=== PATIENT | female | born 1975 | race Caucasian/White ===

== ENCOUNTER 2018-01-22 16:50 | Emergency (ER) | payer OTHER ==
[~2018-01-22] VITALS: Ht 170.2 cm; Wt 88.5 kg
[~2018-01-22 16:50] MED LIST: NAPROXEN500 MG PO; NORCO 5-325 TA1 EACH PO
[2018-01-22] MEDS ORDERED: PERCOCET 5-3251 EACH PO (17:19)
[2018-01-22] MEDS ORDERED: CYCLOBENZAPRINE5 MG PO (17:19)
[2018-01-22] MEDS ORDERED: METHYLPREDNISOLO4 M1 PO (18:24)
[2018-01-22] MEDS ORDERED: PERCOCET 7.5-31 EACH PO (18:24)
[2018-01-22] MEDS ORDERED: BACLOFEN10 MG PO (18:24)
== END 2018-01-22 18:33 | disposition home or self-care (01) ==
LOC: ED 16:50
DX: M53.86 Other specified dorsopathies, lumbar region (principal); M54.30 Sciatica, unspecified side; Z87.891 Personal history of nicotine dependence; Z88.5 Allergy status to narcotic agent; Z88.1 Allergy status to other antibiotic agents
CPT/HCPCS: 73502; 81001; 96374; 96375; 99283; J1100; J1885

== ENCOUNTER 2018-03-11 10:55 | Emergency (ER) | payer OTHER ==
[~2018-03-11] VITALS: Ht 170.2 cm; Wt 88.5 kg
--- OUTSIDE RECORDS SUMMARY | ~2018-03-11 | XMS | Encounter Summary ---
Demographics + + + | Address | [address] | | | [place] [address] | + + + | Home Phone | | + + + | Preferred Language | Unknown | + + + | Marital Status | Single | + + + | Uatsdin Affiliation | 1013 | + + + | Race | Unknown | + + + | Ethnic Group | Unknown | + + + Author + + + | Author | [facility] | + + + | Organization | [facility] | + + + | Address [...] Team Providers + +------+ + | Care Top Distribution Executive Name | Role | Phone | + +------+ + | Honey Shaffer | PCP | | + +------+ + Reason for Visit + + + | Reason | Comments | + + + | Follow-up | | + + + Encounter Details +--------+ + + + + | Date | Type | Department | Care Team | Description | +--------+ + + + + | 12/14/ | Telephone | [facility] | Honey Shaffer, | Follow-up | | 2017 | | [facility] | CORPORATE COORDINATOR [address] | | | | | CARE [address] | [place] | | | | | [place] | [address] | | | | | [address] | | | +--------+ + + + + Social History + +-------+ +--------+ + [...] on file | | + + + as of this encounter Plan of Treatment +--------+---------+ + + + | Date | Type | Specialty | Care Team | Description | +--------+---------+ + + + | 03/20/ | Office | Family Medicine | Honey Shaffer, | | | 2017 | Visit | | CORPORATE COORDINATOR [address] | | | | | | [place] | | | | | | [address] | | | | | | | | +--------+---------+ + + + as of this encounter Visit Diagnoses Not on filein this encounter"
--- OUTSIDE RECORDS SUMMARY | ~2018-03-11 | XMS | Encounter Summary ---
Demographics + + + | Address | [address] | | | [place] [address] | + + + | Home Phone | | + + + | Preferred Language | Unknown | + + + | Marital Status | Single | + + + | Latter Day Affiliation | 1013 | + + + | Race | Unknown | + + + | Ethnic Group | Unknown | + + + Author + + + | Author | [facility] | + + + | Organization | [facility] | + + + | Address [...] Team Providers + +------+ + | Care Home Advisor Name | Role | Phone | + +------+ + | Honey Shaffer | PCP | | + +------+ + Encounter Details +--------+ + + + + | Date | Type | Department | Care Team | Description | +--------+ + + + + | 12/14/ | Ancillary | [facility] | See, Medical | Pain | | 2018 | Orders | [facility] | Record | | | | | [address] | | | | | | [place] [address] | | | | | | [phone] | | | +--------+ + + + [...] 2017 | Visit | | [facility] [address] | | | | | | [place] | | | | | | [address] | | | | | | | | +--------+---------+ + + + as of this encounter Results X-ray lumbar spine limited 2-3 views (12/07/2017 1:34 AM) + + + | Specimen | Performing Laboratory | + + + | | [facility] [address] [place] [address] | + + + + + | Narrative | + + | This is a non-reportable procedure without a radiologist report and is used for | | image storage only | + + in this encounter Visit Diagnoses + + | Diagnosis | + + | Pain | + + | Generalized pain | + +"
--- OUTSIDE RECORDS SUMMARY | ~2018-03-11 | XMS | Encounter Summary ---
Demographics + + + | Address | [address] | | | [place] [address] | + + + | Home Phone | | + + + | Preferred Language | Unknown | + + + | Marital Status | Single | + + + | Mosque Affiliation | 1013 | + + + | Race | Unknown | + + + | Ethnic Group | Unknown | + + + Author + + + | Author | [facility] | + + + | Organization | [facility] [facility] | + + + | Address [...] Team Providers + +------+ + | Care Mechanical Cad Drafter Name | Role | Phone | + +------+ + | Priyanka Guerrero MD | PCP | | + +------+ + Reason for Visit +--------+ + | Reason | Comments | +--------+ + | Other | DIAGNOSTICS | +--------+ + Encounter Details +--------+ + + + + | Date | Type | Department | Care Team | Description | +--------+ + + + + | 01/10/ | Documentnatalie | Rom[facility] | Beronica Crespo MA | Other (DIAGNOSTICS) | | 2018 | on Only | [facility] | | | | | | [address] | | | | | | [place] | | | | | | [address] | | | | | | [phone] | | | +--------+ + + + [...] [place] | | | | | | [address] | | | | | | | | +--------+---------+ + + + as of this encounter Visit Diagnoses Not on filein this encounter"
--- OUTSIDE RECORDS SUMMARY | ~2018-03-11 | XMS | Encounter Summary ---
Demographics + + + | Address | [address] | | | [place] [address] | + + + | Home Phone | | + + + | Preferred Language | Unknown | + + + | Marital Status | Single | + + + | Christianity Affiliation | 1013 | + + + | Race | Unknown | + + + | Ethnic Group | Unknown | + + + Author + + + | Author | [facility] | + + + | Organization | [facility] [employer] | + + + | Address [...] Team Providers + +------+ + | Care Immigration Attorney Name | Role | Phone | + +------+ + | Honey Shaffer | PCP | | + +------+ + Encounter Details +--------+ + + + + | Date | Type | Department | Care Team | Description | +--------+ + + + + | 12/12/ | Telephone | [facility] | Marcus, | | | 2017 | | LAURA INMAN | MONA Mcmillan | | | | | [address] | | | | | | [place] | | | | | | [address] | | | +--------+ + + + [...] [place] | | | | | | [address] | | | | | | | | +--------+---------+ + + + as of this encounter Visit Diagnoses Not on filein this encounter"
--- OUTSIDE RECORDS SUMMARY | ~2018-03-11 | XMS | Encounter Summary ---
Demographics + + + | Address | [address] | | | [place] [address] | + + + | Home Phone | | + + + | Preferred Language | Unknown | + + + | Marital Status | Single | + + + | Anabaptism Affiliation | 1013 | + + + | Race | Unknown | + + + | Ethnic Group | Unknown | + + + Author + + + | Author | [employer] | + + + | Organization | [employer] | + + + | Address [...] Team Providers + +------+ + | Care Commercial Real Estate Paralegal Name | Role | Phone | + [...] + + | 12/14/ | Telephone | [facility] | Honey Shaffer, | Follow-up | | 2017 | | [facility] | ASSISTANT COACH [address] | | | | | CARE [address] | [place] | | | | | [place] | [address] | | | | | [address] | | | +--------+ + + + [...] | | 2017 | Visit | | ASSISTANT COACH [address] | | | | | | [place] | | | | | | [address] | | | | | | | | +--------+---------+ + + + as of this encounter Visit Diagnoses Not on filein this encounter"
--- OUTSIDE RECORDS SUMMARY | ~2018-03-11 | XMS | Encounter Summary ---
Demographics + + + | Address | [address] | | | [place] [address] | + + + | Home Phone | | + + + | Preferred Language | Unknown | + + + | Marital Status | Single | + + + | Denominational Affiliation | 1013 | + + + | Race | Unknown | + + + | Ethnic Group | Unknown | + + + Author + + + | Author | [employer] | + + + | Organization | [employer] | + + + | Address [...] Team Providers + +------+ + | Care Hospital Education Coordinator Name | Role | Phone | + +------+ + | Honey Shaffer | PCP | | + +------+ + Reason for Visit +--------+ + | Reason | Comments | +--------+ + | Other | [facility] Visit | +--------+ + Encounter Details +--------+ + + + + | Date | Type | Department | Care Team | Description | +--------+ + + + + | 01/22/ | Documentati | [facility] | Marii Pickens, | Other ([facility] | | 2018 | on Only | [facility] | GUEST SERVICES DIRECTOR | Hospital - ER Visit) | | | | CARE [address] | | | | | | [place] | | | | | | [address] | | | +--------+ + + + [...] | 2017 | Visit | | [address] | | | | | | [place] | | | | | | [address] | | | | | | | | +--------+---------+ + + + as of this encounter Visit Diagnoses Not on filein this encounter"
--- OUTSIDE RECORDS SUMMARY | ~2018-03-11 | XMS | Encounter Summary ---
Demographics + + + | Address | [address] | | | [place] [address] | + + + | Home Phone [...] + + + | Author | [employer] | + + + | Organization | [employer] | + + + | Address [...] Team Providers + +------+ + | Care Machine Striper Name | Role | Phone | + +------+ + | Honey Shaffer | PCP | | + +------+ + Reason for Referral Consultation (Routine) + + + + + + + | Status | Reason | Specialty | Diagnoses / | Referred By | Referred To | | | | | Procedures | Contact | Contact | + + + + + + + | Authorized | Specialty | Pain Medicine | Diagnoses | Edmund | Karl | | | Services | - Pain | Lumbar | FEMI Méndez | Pain | | | Required | Medicine | discogenic | [address] | Management, | | | | | pain | [address] | [address] | | | | | syndrome | [place], | [address] | | | | | | [place] [address] | [place], | | | | | | Phone: | [place] [address] | | | | | | [phone] | Phone: | | | | | | Fax: | [phone] | | | | | | [phone] | Fax: | | | | | | | [phone] | + + + + + + + Encounter Details +--------+---------+ + + + | Date | Type | Department | Care Team | Description | +--------+---------+ + + + | 01/23/ | Office | [facility] | Honey Shaffer, | Staph aureus | | 2018 | Visit | [facility] | GENOMICS SCIENTIST [address] | infection (Primary | | | | CARE [address] | [place] | Dx); Lumbar | | | | [place] | [address] | discogenic pain | | | | [address] | | syndrome; Multiple | | | | | | joint pain; | | | | | | Hypercholesteremia | +--------+---------+ + + + Social History + +-------+ [...] + + + as of this encounter Last Filed Vital Signs + + + [...] AM PST | + + + + in this encounter Instructions Patient Instructions - Honey Shaffer ARNP - 01/23/2018 11:40 AM PSTFormatting of this not e may be different from the original. High Cholesterol: Assessing Your Risk Have you been told that your cholesterol is too high? If so, you could be heading for a hea rt attack, also known as acute myocardial infarction (AMI), or stroke. This is especially tr ue if you have other risk factors for heart disease. Get smart about cholesterol and your he art disease risk. This sheet can help you understand your heart disease risk and how your ch olesterol level affects it. Talk to your healthcare provider about how to get started contro lling your cholesterol. Why is high cholesterol a problem? Blood cholesterol is a fatty substance. The body uses it to make membranes in cells and for hormone production. It travels through the bloodstream and is used by the tissues for torres l function. When blood cholesterol is high, it forms plaque and causes inflammation. The nadeen que builds up in the bolanos of arteries (blood vessels that carry blood from the heart to the body). This narrows the opening for blood flow. Over time, the heart may not get enough oxy gen. This can lead to coronary artery disease, heart attack, or stroke. 3 steps to assessing your risk Step 1. Find your risk factors for heart disease and stroke How your cholesterol numbers affect your heart health depends on other risk factors for hea rt attack and stroke. Check off each risk factor below that applies to you: Are you a man 45 years old or older or a woman 55 years old or older? Does your family have a history of heart problems before the age of 55 in male relatives or age 65 in female relatives? This includes heart attack, coronary heart disease, or ather osclerosis. Do you have high blood pressure? Do you take medicine to treat high blood pressure? Do you smoke? Do you have diabetes? Do you exercise very little or not very often? Recommendations are for 30 minutes of exe rcise at least 5 days a week. If you are not doing cardiovascular exercise as often as these recommendations, it may not be enough and you may be at higher risk for elevated cholestero l and heart disease. Do you eat a diet that is high in saturated or trans fats, cholesterol, sugar, or alcoho l? You may be at increased risk for heart disease if you do not eat enough fruits, vegetable s, lean meats and eat sugars or drink alcohol sparingly. Have you been told you have high cholesterol? Do you take medicine to control your melany sterol? Step 2. Test your cholesterol Have your cholesterol tested every 5 years after the age of 20 and more often if you have r isk factors. Cholesterol testing most often needs no preparation. Sometimes you may be asked to fast (not eat) before your test. A blood sample is taken and sent to a lab. There, the a mount of cholesterol and triglyceridein your blood is measured. There are2 types of chol esterol in the sample. The first is HDL ( good cholesterol ). The second is LDL ( bad cholesterol ). Cholesterol test results are most often shown as the total of HDL and LDL c holesterol numbers. You may also be told the separate HDL and LDL cholesterol results. Fill in your numbers below. HDL cholesterol: LDL cholesterol: Total cholesterol: Triglyceride: Step 3. Discuss the results with your healthcare provider If your cholesterol levels are higher than normal, your healthcare provider will help you w ith steps to take to lower your levels. Steps may include lifestyle changes like diet, physi zandra activity, and quitting smoking, and medicine to lower bad cholesterol levels. If you have high cholesterol, you may need your cholesterol level tested more often to make sure your medicine and lifestyle changes are working to reduce your risks of having a heart attack or stroke. Date Last Reviewed: 04/26/201619997419-1676 [employer]. [address] [place], [place] [address] [address]. All righ ts reserved. This information is not intended as a substitute for professional medical care. Always follow your healthcare professional's instructions. in this encounter Progress Notes Honey Shaffer ARNP - 01/23/2018 11:40 AM PSTFormatting of this note may be different from the original. Subjective: Patient ID: Grace Masterson is a 42 y.o. female. . Preliminary Data (patient reported):Notes above HPI taken by MA. Pt presents today to discuss elevated cholesterol and a staph infection. Staph infection was dx at Urgent care and then treated with Bactrim she is currently still on. Was also seen at ED in [place] for back problems and was put on prednisone which she is q uestioning whether she should take or not. DEPRESSION SCREENING ([id number]//[id number]) 08/30/2017 PHQ-2 Over the past 2 weeks, have you often been bothered by feeling down, depressed or hop eless? N PHQ-2 Over the past 2 weeks, have you often had little interest or pleasure in doing things ? N PHQ-2 Screening Negative Recommendations from Health Maintenance / Immunizations Due: Health Maintenance Due Topic Vaccine: Dtap/Tdap/Td (1 - Tdap) Cervical Cancer Screening (Pap) Specialty Comments on SnapShot: No specialty comments available. Patient Care Team: FEMI Ji as PCP - General (NURSE PRACTITIONER - FAMILY) Yovani Hoskins DO as Consulting Physician (Pain Medicine - Pain Medicine) HPI Patient here for follow up on abscess with staph infection. She was treated with cephalexi n and septra. She has finished both. The abscess has healed and no longer painful she repo rts. States she did have blood work done at her OBGYN in [facility]. She states that her cholesterol was elevated and was told to start out using Red Yeast Rice 600mg alexy y. Patient was given Percocet 09/21/17 from Alex Shaffer and then also from Dr. Delacruz on gave her lortab #60. She would like a referral to rheumatology but hasn't done labs yet. States her mom has RA. States her joints are bothering her. Knees, feet, fingers, and back. States last night she went to ED in [facility] and was put on prednisone for back pain. States she recently did a pap too and we will request those records. Results for orders placed or performed during the hospital encounter of 12/14/17 Wound culture Collection Time: 12/14/17 11:45 AM Result Value Ref Range Specimen Description OTHER CULTURE 3+ CULTURE STAPHYLOCOCCUS AUREUS (A) Susceptibility Staphylococcus aureus - YANELI Penicillin G RESISTANT Resistant Clindamycin SUSCEPTIBLE Sensitive Erythromycin SUSCEPTIBLE Sensitive Gentamicin SUSCEPTIBLE Sensitive Levofloxacin RESISTANT Resistant Moxifloxacin INTERMEDIATE Intermediate Oxacillin SUSCEPTIBLE Sensitive Tetracycline SUSCEPTIBLE Sensitive Trimethoprim + Sulfamethoxazole SUSCEPTIBLE Sensitive Vancomycin SUSCEPTIBLE Sensitive The following portions of the patient's history were reviewed and updated as appropriate an d is available elsewhere in the record: allergies, current medications, past family history, past medical history, past social history, past surgical history and problem list. Review of Systems Constitutional: Negative for chills and fever. HENT: Negative for congestion, postnasal drip, rhinorrhea and sore throat. Respiratory: Negative for cough and wheezing. Cardiovascular: Negative for chest pain and leg swelling. Gastrointestinal: Negative for abdominal pain, nausea and vomiting. Genitourinary: Negative for frequency and urgency. Musculoskeletal: Positive for back pain. Negative for neck pain. Neurological: Negative for dizziness and headaches. Psychiatric/Behavioral: Negative for sleep disturbance. Objective: BP 132/90 (BP Location: Left upper arm, Patient Position: Sitting) | Pulse 71 | Temp 98.1 F (36.7 C) (Oral) | Resp 16 | Ht 1.702 m (5' 7") | Wt 90.3 kg (199 lb) | SpO2 97% | BMI 31.17 kg/m Physical Exam Constitutional: She appears well-developed and well-nourished. Neck: Normal range of motion. Neck supple. No thyromegaly present. Cardiovascular: Normal rate, regular rhythm and normal heart sounds. No murmur heard. Pulmonary/Chest: Effort normal and breath sounds normal. She has no wheezes. Musculoskeletal: She exhibits no edema. Lymphadenopathy: She has no cervical adenopathy. Psychiatric: She has a normal mood and affect. Her behavior is normal. Judgment and thought content normal. Nursing note and vitals reviewed. Assessment and Plan: Visit Diagnoses and Associated Orders: Staph aureus infection Lumbar discogenic pain syndrome - Ambulatory referral to Pain Clinic Multiple joint pain - Rheumatoid factor; Future - C-reactive protein; Future - Sedimentation rate, automated; Future - FABIÁN; Future - Cyclic Peptide IGG; Future Hypercholesteremia Other orders - Cancel: CBC W/Auto Diff (Reflex to Manual); Future - Cancel: Comprehensive metabolic panel; Future - Cancel: Lipid panel; Future Patient to get lab work done for her multiple joint pain. Will notify her of results and f jobyther instructions. Patient to start on the prednisone that the ED in [place] gave. I cannot give pain meds due to them just giving her some yesterday. Referral to pain management for further medication management. Also, I encouraged her to t ry epidural steroid injections. Will abstract her labs from her recent obgyn. She should work on lifestyle changes. Impro ving diet, exercise, and weight loss. Follow up PRN depending on labs. in this encounter Plan of Treatment +--------+---------+ + + + | Date | Type | Specialty | Care Team | Description | +--------+---------+ + + + | 03/20/ | Office | Family Medicine | Honey Shaffer, | | | 2017 | Visit | | [address] | | | | | | [place], [place] | | | | | | [address] | | | | | | | | +--------+---------+ + + + + +--------+ + + | Name | Priori | Associated Diagnoses | Order Schedule | | | ty | | | + +--------+ + + | Ambulatory referral to Pain | Routin | Lumbar discogenic | Ordered: 01/23/2018 | | Clinic | e | pain syndrome | | + +--------+ + + as of this encounter Results Cyclic Peptide IGG (02/13/2018 11:17 AM) [...] + + | Blood | [facility] [address] [facility] [facility] [place] [address] | + + + FABIÁN (02/13/2018 11:17 AM) + + + + | Component | Value | Ref Range | + + + + | FABIÁN | NegativeComment: Reference range: Negative | | + + + + + + + | Specimen | Performing Laboratory | + + + | Blood - Vein | LABORATORY [facility] [address] | | | [place], [place] [address] | + + + Sedimentation rate, automated (02/13/2018 11:17 AM) + +-------+ + | Component | Value | Ref Range | + +-------+ + | ESR | 10 | 0 - 20 mm/h | + +-------+ + + + + | Specimen | Performing Laboratory | + + + | Blood - Vein | [facility] [address] [place] [address] [address] [place], | | | [place] [address] | + + + C-reactive protein (02/13/2018 11:17 AM) + +-------+ + | Component | Value | Ref Range | + +-------+ + | CRP | 0.4 | <0.5 mg/dL | + +-------+ + + + + | Specimen | Performing Laboratory | + + + | Blood - Vein | [facility] [address] [place] [address] [place], | | | [place] [address] | + + + Rheumatoid factor (02/13/2018 11:17 AM) + +-------+ + | Component | Value | Ref Range | + +-------+ + | RA TITER | <10 | <14 [iU]/mL | + +-------+ + + + + | Specimen | Performing Laboratory | + + + | Blood - Vein | [facility] [address] [place], | | | [place] [address] | + + + in this encounter Visit Diagnoses + + | Diagnosis | + + | Staph aureus infection - Primary | + + | Methicillin susceptible Staphylococcus aureus in conditions classified elsewhere and | | of unspecified site | + + | Lumbar discogenic pain syndrome | + + | Displacement of lumbar intervertebral disc without myelopathy | + + | Multiple joint pain | + + | Pain in joint, multiple sites | + + | Hypercholesteremia | + + | Pure hypercholesterolemia | + +
--- OUTSIDE RECORDS SUMMARY | ~2018-03-11 | XMS | Encounter Summary ---
Demographics + + + | Address | [address] | | | [place] [address] | + + + | Home Phone | | + + + | Preferred Language | Unknown | + + + | Marital Status | Single | + + + | Episcopalian Affiliation | 1013 | + + + | Race | Unknown | + + + | Ethnic Group | Unknown | + + + Author + + + | Author | [employer] | + + + | Organization | [employer] | + + + | Address [...] Team Providers + +------+ + | Care Cellophane Bag Machine Operator Name | Role | Phone | + +------+ + | Honey Shaffer | PCP | | + +------+ + Reason for Visit +--------+ + | Reason | Comments | +--------+ + | Other | [facility] | +--------+ + Encounter Details +--------+ + + + + | Date | Type | Department | Care Team | Description | +--------+ + + + + | 01/22/ | Documentati | [facility] | Marii Pickens [place], | Other ([place] | | 2018 | on Only | [facility] | [facility] | Hospital - Xray | | | | CARE [address] | | Hip) | | | | [address] [place], [place] | | | | | | [address] | | | +--------+ + + + [...] [place] | | | | | | [address] | | | | | | | | +--------+---------+ + + + as of this encounter Visit Diagnoses Not on filein this encounter"
--- OUTSIDE RECORDS SUMMARY | ~2018-03-11 | XMS | Encounter Summary ---
Demographics + + + | Address | [address] | | | [place] [address] | + + + | Home Phone | | + + + | Preferred Language | Unknown | + + + | Marital Status | Single | + + + | Hoahaoism Affiliation | 1013 | + + + | Race | Unknown | + + + | Ethnic Group | Unknown | + + + Author + + + | Author | [employer] | + + + | Organization | [employer] | + + + | Address [...] Team Providers + +------+ + | Care Child Care Nurse Name | Role | Phone | + +------+ + | Honey Shaffer | PCP | | + +------+ + Reason for Referral MRI/CAT Scan (Routine) + +--------+ + + + + | Status | Reason | Specialty | Diagnoses / | Referred By | Referred To | | | | | Procedures | Contact | Contact | + +--------+ + + + + | Pending | | Radiology | Diagnoses | See, | | | Review | | | Pain | Medical | | | | | | Procedures | Record | | | | | | MRI lumbar | | | | | | | spine | | | | | | | without | | | | | | | contrast | | | + +--------+ + + + + Encounter Details +--------+ + + + + | Date | Type | Department | Care Team | Description | +--------+ + + + + | 12/14/ | Ancillary | [facility] | See, Medical | Pain | | 2018 | [facility] MRI | Record | | | | | [address] | | | | | | [place] [address] | | | | | | [phone] | | | +--------+ + + + [...] | 2017 | Visit | | FEMI [address] | | | | | | [place] | | | | | | [address] | | | | | | | | +--------+---------+ + + + as of this encounter Results MRI lumbar spine without contrast (12/07/2017 1:34 AM) + + + | Specimen | Performing Laboratory | + + + | | [facility] [address] [place] [address] | + + + + + | Narrative | + + | This is a non-reportable procedure without a radiologist report and is used for | | image storage only | + + in this encounter Visit Diagnoses + + | Diagnosis | + + | Pain | + + | Generalized pain | + +"
--- OUTSIDE RECORDS SUMMARY | ~2018-03-11 | XMS | Encounter Summary ---
Demographics + + + | Address | [address] | | | [place] [address] | + + + | Home Phone [...] + + + | Author | [employer] | + + + | Organization | [employer] | + + + | Address [...] Team Providers + +------+ + | Care Manufacturing Development Engineer Name | Role | Phone | + +------+ + | Honey Shaffer | PCP | | + +------+ + Encounter Details +--------+ + + + + | Date | Type | Department | Care Team | Description | +--------+ + + + + | 02/18/ | Telephone | [facility] | Marii Pickens, | | | 2017 | | [place] [facility] | HYPERION DEVELOPER | | | | | [address] | | | | | | [place] | | | | | | [address] | | | +--------+ + + + [...] [place] | | | | | | [address] | | | | | | | | +--------+---------+ + + + as of this encounter Visit Diagnoses Not on filein this encounter"
--- OUTSIDE RECORDS SUMMARY | ~2018-03-11 | XMS | Encounter Summary ---
Demographics + + + | Address | [address] | | | [place] [address] | + + + | Home Phone | | + + + | Preferred Language | Unknown | + + + | Marital Status | Single | + + + | Hindu Affiliation | 1013 | + + + | Race | Unknown | + + + | Ethnic Group | Unknown | + + + Author + + + | Author | [employer] | + + + | Organization | [employer] | + + + | Address [...] Team Providers + +------+ + | Care Retail Greeter Name | Role | Phone | + [...] | | | | | | [place] [address] | [place], | | | | | | Phone: | [place] [address] | | | | | | [phone] | Phone: | | | | | | Fax: | [phone] | | | | | | [phone] | Fax: | | | | | | | [phone] | + + + + + + + Encounter Details +--------+---------+ + + + | Date | Type | Department | Care Team | Description | +--------+---------+ + + + | 01/23/ | Office | [facility] | Honey Shaffer, | Staph aureus | | 2018 | Visit | [facility] | GHOST [employer] [address] | infection (Primary | | | | CARE [address] | [place] | Dx); Lumbar | | | | [place] | [address] | discogenic pain | | | | [address] | | syndrome; Multiple | | | [...] heart attack or stroke. Date Last Reviewed: 04/26/201619999519-7699 [facility]. [address] [place], [place] [address] [address]. All righ ts reserved. This information is [...] on. Was also seen at ED in [place] for back problems and was put on prednisone which she is q uestioning whether she should take or not. DEPRESSION SCREENING ([id number]//[id number]) 08/30/2017 PHQ-2 Over the past 2 weeks, [...] blood work done at her OBGYN in [facility]. She states that her cholesterol was elevated [...] last night she went to ED in [facility] and was put on prednisone for back [...] on the prednisone that the ED in [place] gave. I cannot give pain meds due [...] | | | | | | [place], [place] | | | | | | [address] | | | | | | | [...] + + | Blood | [facility] [address] [place] [place] [address] | + + + FABIÁN (02/13/2018 11:17 AM) + + + + | Component | Value | Ref Range | + + + + | FABIÁN | NegativeComment: Reference range: Negative | | + + + + + + + | Specimen | Performing Laboratory | + + + | Blood - Vein | LABORATORY [facility] [address] | | | [place], [place] [address] | + + + Sedimentation rate, automated (02/13/2018 11:17 AM) + +-------+ + | Component | Value | Ref Range | + +-------+ + | ESR | 10 | 0 - 20 mm/h | + +-------+ + + + + | Specimen | Performing Laboratory | + + + | Blood - Vein | [facility] [address] [place] [address] [address] [place], | | | [place] [address] | + + + C-reactive protein (02/13/2018 11:17 AM) + +-------+ + | Component | Value | Ref Range | + +-------+ + | CRP | 0.4 | <0.5 mg/dL | + +-------+ + + + + | Specimen | Performing Laboratory | + + + | Blood - Vein | [facility] [address] [place] [address] [place], | | | [place] [address] | + + + Rheumatoid factor (02/13/2018 11:17 AM) + +-------+ + | Component | Value | Ref Range | + +-------+ + | RA TITER | <10 | <14 [iU]/mL | + +-------+ + + + + | Specimen | Performing Laboratory | + + + | Blood - Vein | [facility] [address] [place], | | | [place] [address] | + + + in this encounter [...]
--- OUTSIDE RECORDS SUMMARY | ~2018-03-11 | XMS | Encounter Summary ---
Demographics + + + | Address | [address] | | | [place] [address] | + + + | Home Phone | | + + + | Preferred Language | Unknown | + + + | Marital Status | Single | + + + | Methodist Affiliation | 1013 | + + + | Race | Unknown | + + + | Ethnic Group | Unknown | + + + Author + + + | Author | [facility] [facility] | + + + | Organization | [facility] [employer] [facility] | + + + | Address [...] Team Providers + +------+ + | Care Notching Press Operator Name | Role | Phone | + +------+ + | Honey Shaffer | PCP | | + +------+ + Reason for Visit + + + | Reason | Comments | + + + | Skin Complaint | Patient went to urgent care Sunday with a lump on her RUQ. She | | | was told it was Staph and it was I&D, She states the pain | | | was wose,and she returned to Urgent care where she was I&D again | | | per patient. Patient states the pain continues. | + + + Encounter Details +--------+ + + + + | Date | Type | Department | Care Team | Description | +--------+ + + + + | 12/14/ | Emergency | [facility] | Ej Amanda, | Abscess (Primary | | 2018 | | [facility] | PA-C [address] | Dx); Elevated blood | | | | Emergency Department | [place] [address] | pressure reading; | | | | [address] | [phone] | Chronic pain | | | | [place] [address] | | syndrome | | | | [phone] | Sandeep Savage MD | | | | | | [address] | | | | | | [place] [address] | | | | | | [phone] | | | | | | | | +--------+ + + [...] + + + | Blood Pressure | 136/71 | 12/14/2017 12:27 PM PST | + + + + | Pulse | 78 | 12/14/2017 12:27 PM PST | + + + + | Temperature | 35.9 C (96.6 F) | 12/14/2017 10:15 AM PST | + + + + | Respiratory Rate | 16 | 12/14/2017 12:27 PM PST | + + + + | Oxygen Saturation | 98% | 12/14/2017 12:27 PM PST | + + + + | Inhaled Oxygen | - | - | | Concentration | | | + + + + | Weight | 89.1 kg (196 lb 6.9 | 12/14/2017 10:15 AM PST | | | oz) | | + + + + | Height | - | - | + + + + | Body Mass Index | 30.77 | 12/14/2017 10:15 AM PST | + + + + in this encounter Discharge Instructions Ej Amanda PA-C - 12/14/2017Take Bactrim AND Keflex. The following attachments cannot be sent through Care Everywhere.Skin Infection, Cellulitis (Trinidadian)in this encounter Medications at Time of Discharge + + +---------+---------+ + + | Medication | Sig. | Disp. | Refills | Start | End Date | | | | | | Date | | + + +---------+---------+ + + | B Complex Vitamins | Take by mouth. | | | | | | (VITAMIN-B COMPLEX | | | | | | | PO) | | | | | | + + +---------+---------+ + + | ibuprofen (MOTRIN) | Take 800 mg by mouth | | 0 | 12/12/19 | | | 800 MG tablet | 3 (three) times | | | 18 | | | | daily. for 10 days. | | | | | + + +---------+---------+ + + | Multiple Vitamin | Take 1 tablet by | | | | | | (MULTI VITAMIN DAILY | mouth. | | | | | | PO) | | | | | | + + +---------+---------+ + + | | Take 1 tablet by | | | | | | oxyCODONE-acetaminop | mouth every 4 (four) | | | | | | hen (PERCOCET) 5-325 | hours as needed for | | | | | | MG per tablet | Pain. | | | | | + + +---------+---------+ + + | cephALEXin | Take 1 capsule by | 28 | 0 | 12/14/19 | | | (KEFLEX) 500 MG | mouth 4 (four) times | capsule | | 18 | 8 | | capsule | daily. | | | | | + + +---------+---------+ + + | cyclobenzaprine | Take 1 tablet by | 90 | 0 | 09/21/20 | | | (FLEXERIL) 5 MG | mouth 3 (three) | tablet | | 17 | 8 | | tabletIndications: | times daily as | | | | | | Spondylolisthesis of | needed for Muscle | | | | | | lumbar region, | spasms for up to 30 | | | | | | Chronic low back | days. | | | | | | pain without | | | | | | | sciatica, | | | | | | | unspecified back | | | | | | | pain laterality, DDD | | | | | | | (degenerative disc | | | | | | | disease), lumbar, | | | | | | | Lumbar facet | | | | | | | arthropathy (HCC), | | | | | | | Status post lumbar | | | | | | | laminectomy | | | | | | + + +---------+---------+ + + | | Take 1 tablet by | | | | | | sulfamethoxazole-tri | mouth 2 (two) times | | | | 8 | | methoprim (BACTRIM | daily. | | | | | | DS) 800-160 MG per | | | | | | | tablet | | | | | | + + +---------+---------+ + + as of this encounter Plan of Treatment +--------+---------+ + + + | Date | Type | Specialty | Care Team | Description | +--------+---------+ + + + | 03/20/ | Office | Family Medicine | Honey Shaffer, | | | 2017 | Visit | | [facility]CR[facility] [address] | | | | | | [place] | | | | | | [address] | | | | | | | | +--------+---------+ + + + as of this encounter Results Wound culture (12/14/2017 11:45 AM) + + [...] + + | Wound - OTHR-w | [facility] [address] [place], | | source desc (F6) | [place] [address] | + + + + + +--------+ [...] | Sensitive | + + +--------+ + in this encounter Visit Diagnoses + + | Diagnosis | + + | Abscess - Primary | + + | Cellulitis and abscess of unspecified site | + + | Elevated blood pressure reading | + + | Elevated blood pressure reading without diagnosis of hypertension | + + | Chronic pain syndrome | + + Admitting Diagnoses + + | Diagnosis | + + | Abscess | + + | Cellulitis and abscess of unspecified site | + + | Chronic pain syndrome | + + | Elevated blood pressure reading | + + | Elevated blood pressure reading without diagnosis of hypertension | + + Administered Medications + +--------+ +--------+------+------+ | Medication Order | MAR | Action | Dose | Rate | Site | | | Action | Date | | | | + +--------+ +--------+------+------+ | doxycycline (VIBRA-TABS) tablet | Given | | 100 mg | | | | 100 mg 100 mg, Oral, Once, Fri | | 8 11:54 | | | | | 12/14/17 at 1151, For 1 dose, | | PST | | | | | Indications: skin abscess | | | | | | + +--------+ +--------+------+------+ +---+---+ | | | +---+---+ + +-------+ +-------+---+---+ | ketorolac (TORADOL) tablet 10 | Given | | 10 mg | | | | mg 10 mg, Oral, Once, Sun | | 8 11:54 | | | | | 12/14/17 at 1151, For 1 dose | | PST | | | | + +-------+ +-------+---+---+ +---+---+ | | | +---+---+ in this encounter"
--- OUTSIDE RECORDS SUMMARY | ~2018-03-11 | XMS | Encounter Summary ---
Demographics + + + | Address | [address] | | | [place] [address] | + + + | Home Phone | | + + + | Preferred Language | Unknown | + + + | Marital Status | Single | + + + | Anabaptist Affiliation | 1013 | + + + | Race | Unknown | + + + | Ethnic Group | Unknown | + + + Author + + + | Author | [facility] [employer] [facility] | + + + | Organization | [facility] [employer] [facility] | + + + | Address [...] Team Providers + +------+ + | Care Ramp Service Agent Name | Role | Phone | + +------+ + | Honey Shaffer | PCP | | + +------+ + Encounter Details +--------+ + + + + | Date | Type | Department | Care Team | Description | +--------+ + + + + | 12/14/ | Procedure | [facility] | | | | 2017 | Pass | [facility] | | | | | | RADIOLOGY [address] | | | | | | [address] | | | | | | [place] [address] | | | | | | [phone] | | | +--------+ + + + [...] [place] | | | | | | [address] | | | | | | | | +--------+---------+ + + + as of this encounter Visit Diagnoses Not on filein this encounter"
--- OUTSIDE RECORDS SUMMARY | ~2018-03-11 | XMS | Encounter Summary ---
Demographics + + + | Address | [address] | | | [place] [address] | + + + | Home Phone | | + + + | Preferred Language | Unknown | + + + | Marital Status | Single | + + + | Yazdanism Affiliation | 1013 | + + + | Race | Unknown | + + + | Ethnic Group | Unknown | + + + Author + + + | Author | [facility] | + + + | Organization | [facility] [employer] [facility] | + + + | Address [...] Team Providers + +------+ + | Care Reverse Unit Operator Name | Role | Phone | + +------+ + | Honey Shaffer | PCP | | + +------+ + Encounter Details +--------+ + + + + | Date | Type | Department | Care Team | Description | +--------+ + + + + | 12/14/ | Procedure | [facility] | | | | 2017 | Pass | [facility] | | | | | | RADIOLOGY [address] | | | | | | [address] | | | | | | [place] [address] | | | | | | [phone] | | | +--------+ + + + [...] [place] | | | | | | [address] | | | | | | | | +--------+---------+ + + + as of this encounter Visit Diagnoses Not on filein this encounter"
--- OUTSIDE RECORDS SUMMARY | ~2018-03-11 | XMS | Encounter Summary ---
Demographics + + + | Address | [address] | | | [place] [address] | + + + | Home Phone | | + + + | Preferred Language | Unknown | + + + | Marital Status | Single | + + + | Christian Affiliation | 1013 | + + + | Race | Unknown | + + + | Ethnic Group | Unknown | + + + Author + + + | Author | [facility] | + + + | Organization | [facility] | + + + | Address [...] Team Providers + +------+ + | Care Chief Credit Officer Name | Role | Phone | + +------+ + | Honey Shaffer | PCP | | + +------+ + Reason for Visit MRI/CAT Scan (Routine) + +--------+ + + [...] + + | 12/14/ | Hospital | [facility]YS[facility]IAN | See, Medical | Pain | | 2018 | Encounter | [facility] | Record | | | | | RADIOLOGY [address] | | [address] | | | | | | [place] [address] | | | | | | [phone] | | | +--------+ + + + [...] + + + as of this encounter Medications at Time of Discharge [...] [place] | | | | | | [address] | | | | | | | | +--------+---------+ + + + as of this encounter Results MRI lumbar spine without contrast (12/07/2017 1:34 AM) + + + | Specimen | Performing Laboratory | + + + | | [facility] [address] [place] [address] | + + + + + | Narrative | + + | This is a non-reportable procedure without a radiologist report and is used for | | image storage only | + + in this encounter Visit Diagnoses + + | Diagnosis | + + | Pain | + + | Generalized pain | + +"
--- OUTSIDE RECORDS SUMMARY | ~2018-03-11 | XMS | Encounter Summary ---
Demographics + + + | Address | [address] | | | [place] [address] | + + + | Home Phone | | + + + | Preferred Language | Unknown | + + + | Marital Status | Single | + + + | Adventist Affiliation | 1013 | + + + | Race | Unknown | + + + | Ethnic Group | Unknown | + + + Author + + + | Author | [employer] [facility] | + + + | Organization | [employer] | + + + | Address [...] Team Providers + +------+ + | Care Repairing Calibrator Name | Role | Phone | + +------+ + | Honey Shaffer | PCP | | + +------+ + Reason for Visit +--------+ + | Reason | Comments | +--------+ + | Other | [facility] - Xray Hip | +--------+ + Encounter Details +--------+ + + + + | Date | Type | Department | Care Team | Description | +--------+ + + + + | 01/22/ | Documentati | [facility] | Marii Pickens [place], | Other ([place] | | 2018 | on Only | [facility] | [facility] | Hospital - Xray | | | | CARE [address] | | Hip) | | | | [address] [place], [place] | | | | | | [address] | | | +--------+ + + + [...] [place] | | | | | | [address] | | | | | | | | +--------+---------+ + + + as of this encounter Visit Diagnoses Not on filein this encounter"
--- OUTSIDE RECORDS SUMMARY | ~2018-03-11 | XMS | Encounter Summary ---
Demographics + + + | Address | [address] | | | [place] [address] | + + + | Home Phone | | + + + | Preferred Language | Unknown | + + + | Marital Status | Single | + + + | Shinto Affiliation | 1013 | + + + | Race | Unknown | + + + | Ethnic Group | Unknown | + + + Author + + + | Author | [facility] [facility] [facility] | + + + | Organization | [employer] [facility] | + + + | Address [...] Team Providers + +------+ + | Care Event Representative Name | Role | Phone | + [...] + + | 12/14/ | Emergency | [facility] | Ej Amanda, | Abscess (Primary | | 2018 | | [facility] | PA-C [address] | Dx); Elevated blood | | | | Emergency Department | [place] [address] | pressure reading; | | | | [address] | [phone] | Chronic pain | | | | [place] [address] | | syndrome | | | | [phone] | Sandeep Savage MD | | | | | | [address] | | | | | | [place] [address] | | | | | | [phone] | | | | | | | [...] be sent through Care Everywhere.Skin Infection, Cellulitis (Belgian)in this encounter Medications at Time of Discharge [...] | | 2017 | Visit | | INSERT[facility] PRESS OPER[facility] [address] | | | | | | [place] | | | | | | [address] | | | | | | | [...] + + | Wound - OTHR-w | [facility] [address] [place], | | source desc (F6) | [place] [address] | + + + + + +--------+ [...]
--- OUTSIDE RECORDS SUMMARY | ~2018-03-11 | XMS | Encounter Summary ---
Demographics + + + | Address | [address] | | | [place] [address] | + + + | Home Phone | | + + + | Preferred Language | Unknown | + + + | Marital Status | Single | + + + | Episcopal Affiliation | 1013 | + + + | Race | Unknown | + + + | Ethnic Group | Unknown | + + + Author + + + | Author | [employer] [employer] [facility] | + + + | Organization | [facility] [facility] | + + + | Address [...] Team Providers + +------+ + | Care Personal Care Attendant Name | Role | Phone | + +------+ + | Honey Shaffer | PCP | | + +------+ + Reason for Referral Consultation (Routine) +--------+ + + + + + | Status | Reason | Specialty | Diagnoses / | Referred By | Referred To | | | | | Procedures | Contact | Contact | +--------+ + + + + + | Denied | Specialty | Neurosurgery | Diagnoses | Edmund | Jayme | | | Magda | | | FEMI Méndez | MD Haseeb | | | Required | | Degeneration | [address] | | | | | of lumbar | [address] | Drive | | | | | intervertebr | [place], | [place] | | | | | al disc | [place] [address] | [address] Phone: | | | | | | Phone: | [phone] | | | | | | [phone] | Fax: | | | | | | Fax: | [phone] | | | | | | [phone] | | +--------+ + + + + + Encounter Details +--------+ + + + + | Date | Type | Department | Care Team | Description | +--------+ + + + + | 12/19/ | Telephone | [facility] | Marii Pickens, | | | 2017 | | [facility] | [facility] | | | | | CARE [address] | | | | | | [place] | | | | | | [phone] | | | +--------+ + + + [...] | | | | | | [place] | | | | | | [address] | | | | | | | | +--------+---------+ + + + + +--------+ + + | Name | Priori | Associated Diagnoses | Order Schedule | | | ty | | | + +--------+ + + | Ambulatory referral to Neurology | Routin | Degeneration of | Ordered: 12/19/2017 | | | e | lumbar | | | | | intervertebral disc | | + +--------+ + + as of this encounter Visit Diagnoses + + | Diagnosis | + + | Degeneration of lumbar intervertebral disc - Primary | + + | Degeneration of lumbar or lumbosacral intervertebral disc | + +"
--- OUTSIDE RECORDS SUMMARY | ~2018-03-11 | XMS | Encounter Summary ---
Demographics + + + | Address | [address] | | | [place] [address] | + + + | Home Phone | | + + + | Preferred Language | Unknown | + + + | Marital Status | Single | + + + | Gnosticism Affiliation | 1013 | + + + | Race | Unknown | + + + | Ethnic Group | Unknown | + + + Author + + + | Author | [facility] | + + + | Organization | [facility] | + + + | Address [...] Team Providers + +------+ + | Care Political Science Research Assistant Name | Role | Phone | + +------+ + | Honey Shaffer | PCP | | + +------+ + Reason for Visit +--------+ + | Reason | Comments | +--------+ + | Triage | | +--------+ + Encounter Details +--------+ + + + + | Date | Type | Department | Care Team | Description | +--------+ + + + + | 02/28/ | Telephone | [facility] | Marcus, | Triage | | 2017 | | [place] [facility] | MONA Mcmillan | | | | | SARIKA [address] | | | | | | [place] | | | | | | [address] | | | +--------+ + + + [...] [place] | | | | | | [place] | | | | | | [address] | | | | | | | | +--------+---------+ + + + as of this encounter Visit Diagnoses Not on filein this encounter"
--- OUTSIDE RECORDS SUMMARY | ~2018-03-11 | XMS | Encounter Summary ---
Demographics + + + | Address | [address] | | | [place] [address] | + + + | Home Phone [...] + + + | Author | [facility] [facility] | + + + | Organization | [facility] [facility] | + + + | Address [...] Team Providers + +------+ + | Care Inshore Undersea Warfare Officer Name | Role | Phone | + +------+ + | Honey Shaffer | PCP | | + +------+ + Encounter Details +--------+ + + + + | Date | Type | Department | Care Team | Description | +--------+ + + + + | 03/01/ | Telephone | [facility] | Halley Ibarra, | | | 2018 | | [facility] | TARE WEIGHER | | | | | [address] | | | | | | [place] | | | | | | [address] | | | | | | [phone] | | | +--------+ + + + [...] [place] | | | | | | [address] | | | | | | | | +--------+---------+ + + + as of this encounter Visit Diagnoses Not on filein this encounter"
--- OUTSIDE RECORDS SUMMARY | ~2018-03-11 | XMS | Clinical Summary ---
Demographics + + + | Address | [address] | | | [place] [address] | + + + | Home Phone | | + + + | Preferred Language | Unknown | + + + | Marital Status | Single | + + + | Caodaism Affiliation | Unknown | + + + | Race | Unknown | + + + | Ethnic Group | Unknown | + + + Author + + + | Author | [facility] | | | and [place] | + + + | Organization | [facility] | | | and [place] | + + + | Address | Unknown | + + + | Phone | Unavailable | + + + Support + + +---------+ + | Name | Relationship | Address | Phone | + + +---------+ + | LorenRolanda | ECON | Unknown | | + + +---------+ + Care Team Providers + +------+ + | Care General Adjuster Name | Role | Phone | + +------+ + | No, Physician | PP | Unavailable | + +------+ + Allergies + + + + + + | Active Allergy | Reactions | Severity | Noted | Comments | | | | | Date | | + + + + + + | Erythromycin | Rash | Low | 08/21/20 | | | | | | 15 | | + + + + + + Current Medications + + +---------+---------+------+------+-------+ | Prescription | Sig. | Disp. | Refills | Star | End | Statu | | | | | | t | Date | s | | | | | | Date | | | + + +---------+---------+------+------+-------+ | omeprazole | TAKE ONE CAPSULE BY | 15 | 0 | 10/0 | | Activ | | (PRILOSEC) 40 MG | MOUTH EVERY MORNING | capsule | | 1/20 | | e | | capsule | BEFORE BREAKFAST | | | 15 | | | + + +---------+---------+------+------+-------+ | ibuprofen (ADVIL, | Take 200 mg by mouth | | | | | Activ | | MOTRIN) 200 mg | every 6 hours as | | | | | e | | tablet | needed for Pain. | | | | | | + + +---------+---------+------+------+-------+ | acetaminophen | Take 15 mg/kg by | | | | | Activ | | (TYLENOL) 160 mg/5 | mouth every 4 hours | | | | | e | | mL LIQD liquid (ED | as needed for Fever. | | | | | | | prepack) | | | | | | | + + +---------+---------+------+------+-------+ | | Take 1 tablet by | | | | | Activ | | HYDROcodone-acetamin | mouth every 6 hours | | | | | e | | ophen (NORCO) 10-325 | as needed for Pain. | | | | | | | mg per tablet | | | | | | | + + +---------+---------+------+------+-------+ Active Problems No known active problems Social History + +-------+ +--------+------+ | Tobacco Use | Types | Packs/Day | Years | Date | | | | | Used | | + +-------+ +--------+------+ | Light Tobacco Smoker | | | | | + +-------+ +--------+------+ + +---+---+---+ | Smokeless Tobacco: | | | | | Never Used | | | | + +---+---+---+ + + + | Sex Assigned at | Date Recorded | | | | + + + | Not on file | | + + + Last Filed Vital Signs + + + + | Vital Sign | Reading | Time Taken | + + + + | Blood Pressure | 133/89 | 09/15/2016948 PDT | + + + + | Pulse | 75 | 09/15/2016948 PDT | + + + + | Temperature | 36.2 C (97.1 F) | 09/15/2016948 PDT | + + + + | Respiratory Rate | 16 | 09/15/2016948 PDT | + + + + | Oxygen Saturation | 100% | 08/21/20151333 PDT | + + + + | Inhaled Oxygen | - | - | | Concentration | | | + + + + | Weight | 80.7 kg (178 lb) | 09/15/2016948 PDT | + + + + | Height | 170.2 cm (5' 7") | 09/15/2016948 PDT | + + + + | Body Mass Index | 27.88 | 09/15/201649 PDT | + + + + Plan of Treatment + + + + + | Health Maintenance | Due Date | Last Done | Comments | + + + + + | Vaccine: | | | | | Dtap/Tdap/Td (1 - | 3 | | | | Tdap) | | | | + + + + + | Vaccine: | | | | | Pneumococcal - | 3 | | | | (PPSV23 only) Medium | | | | | Risk (1 of 1 - | | | | | PPSV23) | | | | + + + + + | CERVICAL CANCER | | | | | SCREENING (PAP EVERY | 5 | | | | 3 YEARS - ) | | | | + + + + + | Vaccine: Influenza | | | | | (Season Ended) | 8 | | | + + + + + Results Not on filefrom Last 3 Months Insurance + +--------+ +--------+ +---------+ | Payer | Benefi | Subscriber | Type | Phone | Address | | | t Plan | ID | | | | | | / | | | | | | | Group | | | | | + +--------+ +--------+ +---------+ | [employer] | [employer] | xxxxxxxx | Medica | [id number] | | | MEDICAID HMO | HEALTH | | id | 9821 | | | | [place] | | | | | | | [place] | | | | | + +--------+ +--------+ +---------+ + +--------+ +--------+ + + | Guarantor Name | Accoun | Relation to | Date | Phone | Billing Address | | | t Type | Patient | of | | | | | | | | | | + +--------+ +--------+ + + | TE MASTERSON | Person | Self [birth year] | Home: | [address] | | [place] | al/Fam | | 1974 | +- | [address] [place] | | | [place] | | | [address] | [phone] | + +--------+ +--------+ + + | [id number] | Worker | Self | [birth year] | Home: | [address] | | | s Comp | | 1974 | +- | [place] | | | | | | [address] | [address] | + +--------+ +--------+ + + | TE MASTERSON | Worker | Self | [birth year] | Home: | [address] | | [place] | s Comp | | 1974 | [phone] | [address] [place] | | | | | | [address] | [phone] | + +--------+ +--------+ + +
--- OUTSIDE RECORDS SUMMARY | ~2018-03-11 | XMS | Encounter Summary ---
Demographics + + + | Address | [address] | | | [place] [address] | + + + | Home Phone | | + + + | Preferred Language | Unknown | + + + | Marital Status | Single | + + + | Jainism Affiliation | 1013 | + + + | Race | Unknown | + + + | Ethnic Group | Unknown | + + + Author + + + | Author | [facility] [employer] [facility] | + + + | Organization | [facility] [employer] [facility] [facility] | + + + | Address [...] Team Providers + +------+ + | Care New Media Strategist Name | Role | Phone | + +------+ + | Hoeny Shaffer | PCP | | + +------+ + Encounter Details +--------+ + + + + | Date | Type | Department | Care Team | Description | +--------+ + + + + | 12/14/ | Hospital | [facility] | See, Medical | Pain | | 2017 | Encounter | [facility] | Record | | | | | RADIOLOGY [address] | | | | | | [address] | | | | | | [place] [address] | | | | | | [phone] | | | +--------+ + + + [...] | | 2017 | Visit | | [facility] [address] | | | | | | [place] [facility] [place] | | | | | | [address] | | | | | | | | +--------+---------+ + + + as of this encounter Results X-ray lumbar spine limited 2-3 views (12/07/2017 1:34 AM) + + + | Specimen | Performing Laboratory | + + + | | [facility] [address] [place] [address] | + + + + + | Narrative | + + | This is a non-reportable procedure without a radiologist report and is used for | | image storage only | + + in this encounter Visit Diagnoses + + | Diagnosis | + + | Pain | + + | Generalized pain | + +"
--- OUTSIDE RECORDS SUMMARY | ~2018-03-11 | XMS | Encounter Summary ---
Demographics + + + | Address | [address] | | | [place] [address] | + + + | Home Phone | | + + + | Preferred Language | Unknown | + + + | Marital Status | Single | + + + | Orthodoxy Affiliation | 1013 | + + + | Race | Unknown | + + + | Ethnic Group | Unknown | + + + Author + + + | Author | [facility] | + + + | Organization | [facility] | + + + | Address [...] Team Providers + +------+ + | Care Brick Shader Name | Role | Phone | + +------+ + | Honey ShafferP | PCP | | + +------+ + Reason for Visit +--------+ + | Reason | Comments | +--------+ + | Other | OUTSIDE MEDICAL RECORDS | +--------+ + Encounter Details +--------+ + + + + | Date | Type | Department | Care Team | Description | +--------+ + + + + | 03/01/ | Documentati | [facility] | Beronica Crespo MA | Other (OUTSIDE | | 2018 | on Only | [facility] | | MEDICAL RECORDS) | | | | [address] | | | | | | [place] | | | | | | [address] | | | | | | [phone] | | | +--------+ + + + [...] Medicine | Honey Shaffer, | | | 2018 | Visit | | [address] | | | | | | [place] | | | | | | [address] | | | | | | | | +--------+---------+ + + + as of this encounter Visit Diagnoses Not on filein this encounter"
--- OUTSIDE RECORDS SUMMARY | ~2018-03-11 | XMS | Clinical Summary ---
Demographics + + + | Address | [address] | | | [place] [address] | + + + | Home Phone | | + + + | Preferred Language | Unknown | + + + | Marital Status | Single | + + + | Nondenominational Affiliation | Unknown | + + + | Race | Unknown | + + + | Ethnic Group | Unknown | + + + Author + + + | Author | [facility] | | | and [place] | + + + | Organization | [facility] | | | and [...] Team Providers + +------+ + | Care Embedded Systems Software Engineer Name | Role | Phone | [...] | MODA | [id number] | Medica | [phone] | | | MEDICAID HMO | HEALTH [...] Self | [birth year] | Home: | [address] | | AMAN | al/Fam | | 1974 | +- | [address] [place] | | | [place] | | | [address] | [phone] | + +--------+ +--------+ + + | [id number] | Worker | Self | [birth year] | Home: | [address] | | | s Comp | | 1974 | +- | [place] | | | | | | [address] | [phone] | + +--------+ +--------+ + + | TE MASTERSON | Worker | Self | [birth year] | Home: | [address] | | AMAN | s Comp | | 1974 | [phone] | [address] [place] | | | | | | [address] | [address] | + +--------+ +--------+ + +
--- OUTSIDE RECORDS SUMMARY | ~2018-03-11 | XMS | Clinical Summary ---
Demographics + + + | Address | [address] | | | [place] [address] | + + + | Home Phone [...] + + + | Author | [facility] | + + + | Organization | [facility] | + + + | Address [...] Team Providers + +------+ + | Care Videogame Designer Name | Role | Phone | + [...] + | Overview: Seen on xray at [facility] 01/22/18 | + + + [...] L4-L5. She was | | referred to [facility] for neurosurgical | | consult.Today [...] | | | 2017 | | | WELL SERVICE DERRICK WORKER | | +--------+ + + + + [...] | | | 2017 | | | WELL SERVICE DERRICK WORKER | | +--------+ + + + + | 02/13/ | Lab | | Sallie Pantoja, | Multiple joint pain | 2017 | Requisition | | Cordwood Cutter Helper | | +--------+ + + + + | 01/29/ | Documentati | | Honey Shaffer, | | | 2018 | on Only | | FOCUS PULLER | | +--------+ + + + + | 01/23/ | Office | | Honey Shaffer, | Staph aureus | | 2017 | Visit | | FOCUS PULLER | infection (Primary | | | | [...] | 2018 | on Only | | WELL SERVICE DERRICK WORKER | Hospital - Xray | | | | | | Hip) | +--------+ + + + + | 01/22/ | Documentati | | Marii Pickens, | Other ([facility] | | 2018 | on Only | | WELL SERVICE DERRICK WORKER | Hospital - ER | | | | | | Visit) | +--------+ + + + + | 01/22/ | Documentati | | Marii Pickens, | [place] [facility] | | 2017 | on Only | | WELL SERVICE DERRICK WORKER | Hospital - ER Visit) | +--------+ + + + + | 01/22/ | Documentati | | Marii Pickens, | [place] ([facility] | | 2017 | on Only | | WELL SERVICE DERRICK WORKER | Labs - UA) | +--------+ + + + + | 01/22/ | Telephone | | Honey Shaffer, | Other | | 2018 | | | FOCUS PULLER | | +--------+ + + + + | 01/10/ | Documentati | | Beronica Crespo MA | Other (DIAGNOST[facility]) | | 2018 | on Only | | | | +--------+ + + + + | 01/02/ | Telephone | | Honey Shaffer, | | | 2017 | | | FOCUS PULLER | | +--------+ + + + + [...] | | | 2017 | | | WELL SERVICE DERRICK WORKER | | +--------+ + + + + [...] Follow-up | | 2017 | | | FOCUS PULLER | | +--------+ + + + + [...] [place] | | | | | | [address] | | | | | | | [...] + + | Blood | [facility] [address] [place] [address] | + + + Sedimentation rate, automated (02/13/2018 11:17 AM) + +-------+ + | Component | Value | Ref Range | + +-------+ + | ESR | 10 | 0 - 20 mm/h | + +-------+ + + + + | Specimen | Performing Laboratory | + + + | Blood - Vein | [facility] [address] [place], | | | [place] [address] | + + + Rheumatoid factor (02/13/2018 11:17 AM) + +-------+ + | Component | Value | Ref Range | + +-------+ + | RA TITER | <10 | <14 [iU]/mL | + +-------+ + + + + | Specimen | Performing Laboratory | + + + | Blood - Vein | [facility] [address] [place], | | | [place] [address] | + + + C-reactive protein (02/13/2018 11:17 AM) + +-------+ + | Component | Value | Ref Range | + +-------+ + | CRP | 0.4 | <0.5 mg/dL | + +-------+ + + + + | Specimen | Performing Laboratory | + + + | Blood - Vein | [facility] [address] [place], [place] [address]vd. [place], | | | [place] [address] | + + + FABIÁN (02/13/2018 11:17 [...] [address] | | | [place] [address] | + + + Urinalysis w/microscopic (reflex [...] + + | Wound - OTHR-w | [facility] [address] [place], | | source desc (F6) | [place] [address] | + + + + + +--------+ [...] | | [place] | | | | [address] | | | QUALITY ASSURANCE COORDINATOR | | | | | + +--------+ [...] Self | [birth year] | Home: | [address] | | | al/Fam | | 1975 | [phone] | [address] [place], [place] | | | [place] | | | [address] | [address] | + +--------+ +--------+ + +
--- OUTSIDE RECORDS SUMMARY | ~2018-03-11 | XMS | Encounter Summary ---
Demographics + + + | Address | [address] | | | [place] [address] | + + + | Home Phone | | + + + | Preferred Language | Unknown | + + + | Marital Status | Single | + + + | Restorationism Affiliation | 1013 | + + + | Race | Unknown | + + + | Ethnic Group | Unknown | + + + Author + + + | Author | [facility] | + + + | Organization | [facility] | + + + | Address [...] Providers + +------+ + | Care Commercial Lines Assistant Name | Role | Phone | + +------+ + | Honey Shaffer | PCP | | + +------+ + Encounter Details +--------+ + + + + | Date | Type | Department | Care Team | Description | +--------+ + + + + | 02/13/ | Lab | [facility] | Sallie Pantoja, | Multiple joint pain | | 2017 | Requisition | [address] | Prosthetic Makeup Designer | | | | | [place] [address] | | | | | | [phone] | | | +--------+ + + + [...] | | 2018 | Visit | | CASH REGISTER SERVICER [address] | | | | | | [place] | | | | | | [address] | | | | | | | [...] + + | Blood | [facility] [address] [facility] [place] [address] | + + + FABIÁN (02/13/2018 11:17 AM) + + + + | Component | Value | Ref Range | + + + + | FABIÁN | NegativeComment: Reference range: Negative | | + + + + + + + | Specimen | Performing Laboratory | + + + | Blood - Vein | [facility] [place] [address] | | | [place] [address] | + + + Sedimentation rate, automated (02/13/2018 11:17 AM) + +-------+ + | Component | Value | Ref Range | + +-------+ + | ESR | 10 | 0 - 20 mm/h | + +-------+ + + + + | Specimen | Performing Laboratory | + + + | Blood - Vein | [facility] [address] [place], | | | [place] [address] | + + + C-reactive protein (02/13/2018 11:17 AM) + +-------+ + | Component | Value | Ref Range | + +-------+ + | CRP | 0.4 | <0.5 mg/dL | + +-------+ + + + + | Specimen | Performing Laboratory | + + + | Blood - Vein | [facility] [address] [place] [address] [address]vd[address] [place], | | | [place] [address] | + + + Rheumatoid factor (02/13/2018 11:17 AM) + +-------+ + | Component | Value | Ref Range | + +-------+ + | RA TITER | <10 | <14 [iU]/mL | + +-------+ + + + + | Specimen | Performing Laboratory | + + + | Blood - Vein | [facility] [address] [place] [address] [address] [place], | | | [place] [address] | + + + in this encounter Visit Diagnoses + + | Diagnosis | + + | Multiple joint pain | + + | Pain in joint, multiple sites | + +"
--- OUTSIDE RECORDS SUMMARY | ~2018-03-11 | XMS | Encounter Summary ---
Demographics + + + | Address | [address] | | | [place] [address] | + + + | Home Phone [...] + + + | Author | [facility] | + + + | Organization | [facility] | + + + | Address [...] Team Providers + +------+ + | Care Mammal Keeper Name | Role | Phone | + [...] + + | 02/28/ | Telephone | [facility] | Marcus, | Triage | | 2017 | | LAURA [facility]MAN | MONA Mcmillan | | | | | [place] [address] | | | | | | [place] | | | | | | [address] | | | +--------+ + + + [...] | | 2017 | Visit | | [facility] [address] | | | | | | [place] | | | | | | [address] | | | | | | | | +--------+---------+ + + + as of this encounter Visit Diagnoses Not on filein this encounter"
--- OUTSIDE RECORDS SUMMARY | ~2018-03-11 | XMS | Encounter Summary ---
Demographics + + + | Address | [address] | | | [place] [address] | + + + | Home Phone | | + + + | Preferred Language | Unknown | + + + | Marital Status | Single | + + + | Latter-Day Affiliation | 1013 | + + + | Race | Unknown | + + + | Ethnic Group | Unknown | + + + Author + + + | Author | [facility] | + + + | Organization | [facility] | + + + | Address [...] Team Providers + +------+ + | Care Technical Account Manager Name | Role | Phone | + +------+ + | Honey Shaffer | PCP | | + +------+ + Reason for Visit +--------+ + | Reason | Comments | +--------+ + | Other | [facility] Visit | +--------+ + Encounter Details +--------+ + + + + | Date | Type | Department | Care Team | Description | +--------+ + + + + | 01/22/ | Documentati | [facility] | Marii Pickens, | Other ([facility] | | 2018 | on Only | [facility] | ACCOUNT MANAGER RELIEF | Hospital - ER Visit) | | | | CARE [address] | | | | | | [place] | | | | | | [address] | | | +--------+ + + + [...] [place] | | | | | | [address] | | | | | | | | +--------+---------+ + + + as of this encounter Visit Diagnoses Not on filein this encounter"
--- OUTSIDE RECORDS SUMMARY | ~2018-03-11 | XMS | Encounter Summary ---
Demographics + + + | Address | [address] | | | [place] [address] | + + + | Home Phone | | + + + | Preferred Language | Unknown | + + + | Marital Status | Single | + + + | Anglican Affiliation | 1013 | + + + | Race | Unknown | + + + | Ethnic Group | Unknown | + + + Author + + + | Author | [email or web address] | + + + | Organization | [email or web address] | + + + | Address [...] Team Providers + +------+ + | Care Assistant Hall Director Name | Role | Phone | + [...] | | 2018 | on Only | [facility] | | MEDICAL RECORDS) | | | | [address] | | | | | | [place] | | | | | | [address] | | | | | | [phone] | | | +--------+ + + + [...] | | | | | [place] | | | | | | [id number] | | | | | | | | +--------+---------+ + + + as of this encounter Visit Diagnoses Not on filein this encounter"
--- OUTSIDE RECORDS SUMMARY | ~2018-03-11 | XMS | Encounter Summary ---
Demographics + + + | Address | [address] | | | [place] [address] | + + + | Home Phone | | + + + | Preferred Language | Unknown | + + + | Marital Status | Single | + + + | Confucianist Affiliation | 1013 | + + + | Race | Unknown | + + + | Ethnic Group | Unknown | + + + Author + + + | Author | [facility] | + + + | Organization | [facility] | + + + | Address [...] Team Providers + +------+ + | Care Veneer Stacker Name | Role | Phone | + +------+ + | Edmund Honey WEB DESIGNER DEVELOPER | PCP | | + +------+ + Reason for Visit +--------+ + | Reason | Comments | +--------+ + | Other | [facility] | +--------+ + Encounter Details +--------+ + + + + | Date | Type | Department | Care Team | Description | +--------+ + + + + | 01/22/ | Documentati | [facility] | Marii Pickens, | Other ([facility] | | 2018 | on Only | [facility] | MUSICAL THERAPIST | Labs - UA) | | | | CARE [address] | | | | | | Way [place] | | | | | | [address] | | | +--------+ + + + [...] | | 2018 | Visit | | WEB DESIGNER DEVELOPER [address] | | | | | | [place], [place] | | | | | | [address] | | | | | | | | +--------+---------+ + + + as of this encounter Results Urinalysis w/microscopic (reflex to culture) (01/22/2018) + [...] | Urine | | + + + in this encounter Visit Diagnoses Not on filein this encounter"
--- OUTSIDE RECORDS SUMMARY | ~2018-03-11 | XMS | Encounter Summary ---
Demographics + + + | Address | [address] | | | [place] [address] | + + + | Home Phone [...] + + + | Author | [facility] | + + + | Organization | [facility] | + + + | Address [...] Team Providers + +------+ + | Care Roving Department End Finder Name | Role | Phone | + +------+ + | Priyanka Guerrero MD | PCP | | + +------+ + Encounter Details +--------+ + + + + | Date | Type | Department | Care Team | Description | +--------+ + + + + | 01/02/ | Telephone | [facility] | Honey Shaffer, | | | 2017 | | [facility]IMARY | RELEASE OF INFORMATION CLERK [address] | | | | | CARE [address] | [place] | | | | | [place] | [address] | | | | | [address] | | | +--------+ + + + [...] | | 2017 | Visit | | RELEASE OF INFORMATION CLERK [address] | | | | | | [place] | | | | | | [address] | | | | | | | | +--------+---------+ + + + as of this encounter Visit Diagnoses Not on filein this encounter"
--- OUTSIDE RECORDS SUMMARY | ~2018-03-11 | XMS | Encounter Summary ---
Demographics + + + | Address | [address] | | | [place] [address] | + + + | Home Phone | | + + + | Preferred Language | Unknown | + + + | Marital Status | Single | + + + | Temple Affiliation | 1013 | + + + | Race | Unknown | + + + | Ethnic Group | Unknown | + + + Author + + + | Author | [facility] [employer] [employer] [facility] | + + + | Organization | [facility] [employer] [facility] | + + + | [...] Team Providers + +------+ + | Care Blind Lacer Name | Role | Phone | + [...] | | 2018 | on Only | [facility] | | | | | | [address] | | | | | | [place] | | | | | | [address] | | | | | | [phone] | | | +--------+ + + + [...] | Office | Family Medicine | Honey Shafefr, | | | 2017 | Visit | | [place] [address] | | | | | | [place] | | | | | | [address] | | | | | | | | +--------+---------+ + + + as of this encounter Visit Diagnoses Not on filein this encounter"
--- OUTSIDE RECORDS SUMMARY | ~2018-03-11 | XMS | Encounter Summary ---
Demographics + + + | Address | [address] | | | [place] [address] | + + + | Home Phone [...] + + + | Author | [facility] | + + + | Organization | [facility] | + + + | Address [...] Team Providers + +------+ + | Care Small Arms Repairer Name | Role | Phone | + +------+ + | Honey Shaffer | PCP | | + +------+ + Reason for Visit +--------+ + | Reason | Comments | +--------+ + | Other | [facility] - ER Visit | +--------+ + Encounter Details +--------+ + + + + | Date | Type | Department | Care Team | Description | +--------+ + + + + | 01/22/ | Documentati | [facility] | Marii Pickens [place], | Other ([facility] | | 2018 | on Only | [facility] | [facility] | Hospital - ER | | | | CARE [facility] | | Visit) | | | | Way [place] | | | | | | [address] | | | +--------+ + + + [...] [place] | | | | | | [address] | | | | | | | | +--------+---------+ + + + as of this encounter Visit Diagnoses Not on filein this encounter"
--- OUTSIDE RECORDS SUMMARY | ~2018-03-11 | XMS | Encounter Summary ---
Demographics + + + | Address | [address] | | | [place] [address] | + + + | Home Phone | | + + + | Preferred Language | Unknown | + + + | Marital Status | Single | + + + | Jehovah'S Witness Affiliation | 1013 | + + + | Race | Unknown | + + + | Ethnic Group | Unknown | + + + Author + + + | Author | [facility] | + + + | Organization | [facility] | + + + | Address [...] Team Providers + +------+ + | Care Catheter Finisher And Inspector Name | Role | Phone | + +------+ + | Edmund Honey PERSONAL CHEF | PCP | | + +------+ + Reason for Visit +--------+ + | Reason | Comments | +--------+ + | Other | [facility] | +--------+ + Encounter Details +--------+ + + + + | Date | Type | Department | Care Team | Description | +--------+ + + + + | 01/22/ | Documentati | [facility] | Marii Pickens, | Other ([facility] | | 2018 | on Only | [facility] | BEAUTY OPERATOR | Labs - UA) | | | | CARE [address] | | | | | | Way [place] | | | | | | [address] | | | +--------+ + + + [...] | | 2018 | Visit | | PERSONAL CHEF [address] | | | | | | [place], [place] | | | | | | [address] | | | | | | | [...]
--- OUTSIDE RECORDS SUMMARY | ~2018-03-11 | XMS | Encounter Summary ---
Demographics + + + | Address | [address] | | | [place] [address] | + + + | Home Phone | | + + + | Preferred Language | Unknown | + + + | Marital Status | Single | + + + | Church Affiliation | 1013 | + + + | Race | Unknown | + + + | Ethnic Group | Unknown | + + + Author + + + | Author | [facility] | + + + | Organization | [facility] | + + + | Address [...] Team Providers + +------+ + | Care Facetor Name | Role | Phone | + +------+ + | Honey Shaffer | PCP | | + +------+ + Encounter Details +--------+ + + + + | Date | Type | Department | Care Team | Description | +--------+ + + + + | 02/18/ | Telephone | [facility] | Marii Picknes, | | | 2017 | | [facility] | LEATHER GRAINER | | | | | [address] | | | | | | [place] | | | | | | [address] | | | +--------+ + + + [...] [place] | | | | | | [address] | | | | | | | | +--------+---------+ + + + as of this encounter Visit Diagnoses Not on filein this encounter"
--- OUTSIDE RECORDS SUMMARY | ~2018-03-11 | XMS | Encounter Summary ---
Demographics + + + | Address | [address] | | | [place] [address] | + + + | Home Phone | | + + + | Preferred Language | Unknown | + + + | Marital Status | Single | + + + | Alevism Affiliation | 1013 | + + + | Race | Unknown | + + + | Ethnic Group | Unknown | + + + Author + + + | Author | [facility] [email or web address] [facility] | + + + | Organization | [facility] [email or web address] [facility] | + + + | Address [...] Team Providers + +------+ + | Care Detail Manager Name | Role | Phone | + +------+ + | Honey Shaffer | PCP | | + +------+ + Encounter Details +--------+ + + + + | Date | Type | Department | Care Team | Description | +--------+ + + + + | 01/29/ | Documentati | [facility] | Honey Shaffer, | | | 2018 | on Only | [facility] | LEAD GENERATION MARKETING MANAGER [address] | | | | | CARE [address] | [place] | | | | | [place] [...] [place] | | | | | | [address] | | | | | | | | +--------+---------+ + + + as of this encounter Results EXTERNAL LAB: PAP SMEAR (07/03/2016) + + + + | Component | Value | Ref Range | + + + + | PAP SMEAR, EXTERNAL | No evidence of intraepithelial lesion or | | | | malignancy | | + + + + in this encounter Visit Diagnoses Not on filein this encounter"
--- OUTSIDE RECORDS SUMMARY | ~2018-03-11 | XMS | Encounter Summary ---
Demographics + + + | Address | [address] | | | [place] [address] | + + + | Home Phone | | + + + | Preferred Language | Unknown | + + + | Marital Status | Single | + + + | Orthodox Affiliation | 1013 | + + + | Race | Unknown | + + + | Ethnic Group | Unknown | + + + Author + + + | Author | [facility] | + + + | Organization | [facility] | + + + | Address [...] Team Providers + +------+ + | Care Fishing Gear Mechanic Name | Role | Phone | + +------+ + | Priyanka Guerrero MD | PCP | | + +------+ + Encounter Details +--------+ + + + + | Date | Type | Department | Care Team | Description | +--------+ + + + + | 01/02/ | Telephone | [facility] | Honey Shaffer, | | | 2017 | | [facility] | FIELD SUPERVISOR SEED PRODUCTION [address] | | | | [...] | | 2017 | Visit | | FIELD SUPERVISOR SEED PRODUCTION [address] | | | | | | [place] | | | | | | [address] | | | | | | | | +--------+---------+ + + + as of this encounter Visit Diagnoses Not on filein this encounter"
--- OUTSIDE RECORDS SUMMARY | ~2018-03-11 | XMS | Encounter Summary ---
Demographics + + + | Address | [address] | | | [place] [address] | + + + | Home Phone | | + + + | Preferred Language | Unknown | + + + | Marital Status | Single | + + + | Mormon Affiliation | 1013 | + + + | Race | Unknown | + + + | Ethnic Group | Unknown | + + + Author + + + | Author | [employer] | + + + | Organization | [employer] | + + + | Address [...] Team Providers + +------+ + | Care Felt Machine Mechanic Name | Role | Phone | + +------+ + | Sakshi Shaffer | PCP | | + +------+ + Reason for Referral Physical Medicine (Routine) +--------+ + + + + + | Status | Reason | Specialty | Diagnoses / | Referred By | Referred To | | | | | Procedures | Contact | Contact | +--------+ + + + + + | Closed | Specialty | Physical | Diagnoses | Jayme, | Therapy, | | | Services | Therapy | Other | MD Haseeb | Eastern | | | Required | | intervertebr | [address] | | | | | al disc | [address] | Physical | | | | | degeneration | Drive | [address] | | | | | , lumbar | [place], [place] | [address] | | | | | region | [address] | [place], | | | | | | Phone: | [place] [address] | | | | | | [phone] | Phone: | | | | | | Fax: | [phone] | | | | | | [phone] | Fax: | | | | | | | [phone] | +--------+ + + + + + Reason for Visit + + + | Reason | Comments | + + + | Follow-up | | + + + | Back Pain | | + + + Encounter Details +--------+---------+ + + + | Date | Type | Department | Care Team | Description | +--------+---------+ + + + | 12/20/ | Office | [facility] | Haseeb Delacruz MD | Spondylolisthesis of | | 2018 | Visit | [facility] | [address] | lumbar region; | | | | [address] | Drive [place], [place] | Chronic low back | | | | [place], [place] | [address] | pain without | | | | [address] | | sciatica, | | | | [phone] | | unspecified back | | | | | | pain laterality; DDD | | | | | | (degenerative disc | | | | | | disease), lumbar; | | | | | | Lumbar facet | | | | | | arthropathy; Status | | | | | | post lumbar | | | | | | laminectomy | +--------+---------+ + + + Social History [...] + | Blood Pressure | 133/89 | 12/20/2017 8:40 AM PST | + + + + | Pulse | 89 | 12/20/2017 8:40 AM PST | + + + + | Temperature | - | - | + + + + | Respiratory Rate | - | - | + + + + | Oxygen Saturation | - | - | + + + + | Inhaled Oxygen | - | - | | Concentration | | | + + + + | Weight | 87.1 kg (192 lb) | 12/20/2017 8:40 AM PST | + + + + | Height | 170.2 cm (5' 7") | 12/20/2017 8:40 AM PST | + + + + | Body Mass Index | 30.07 | 12/20/2017 8:40 AM PST | + + + + in this encounter Progress Notes Haseeb Delacruz MD - 12/20/2017 8:45 AM PSTSubjective: This is a followup visit for this 42 year old woman. She has a history of lumbar facet art hropathy with facet cyst and left L5 radicular pain. She underwent a left L4-5 hemilaminect paulina and facet cyst resection in March of 2017. She improved afterwards and reported minimal p ain at her second postop visit. Unfortunately, she then reported that she felt like the zahida n had recurred. She is reporting sciatica pain with increased activities or prolonged stand ing in the left leg and back pain. She is not able to work right now and has been working w [facility] vocational rehab on finding a less strenuous profession. She was working in [employer]. Objective: Looks well. Walks independently. Motor: 03/30 B LE. Imaging: MRI shows resection of the left L4-5 facet cyst to my interpretation. She is S/P left L4-5 hemilaminectomy. There is residual facet arthropathy at L4-5 and L5-S1 as expected. The L 4-5 facets are the worst. Flexion-extension films show a grade 1 spondylolisthesis at L4-5 and L5-S1, although the radiologist did not comment on it. Assessment/Plan: 42 year old with history of facet arthropathy, left L5 radiculopathy secondary to lateral r ecess stenosis and facet cyst, s/p surgery in March. The MRI looks good from my perspective a nd certainly nothing to operate on at present. She does have a grade I spondylolisthesis at L4-5, less so at L5-S1 with facet arthropathy. The surgery for that problem would be a lumb ar fusion. I told her that she should try and avoid that as long as possible. As long as she can manage it with conservative measures, I do not think anything further needs to be done. She is working on job retraining and getting a different type of work lined up. I sent her to PT for core strengthening at [facility]. I also refilled her hydrocodone and Flexe ril. CC: SAKSHI SHAFFER Note: We spent approximately 25 minutes in [id number]-[id number] time of which greater than 50% was involved in counseling/coordination of care. in this encounter Plan of Treatment +--------+---------+ + + + | Date | Type | Specialty | Care Team | Description | +--------+---------+ + + + | 03/20/ | Office | Family Medicine | Sakshi Shaffer, | | | 2017 | Visit | | [facility] [address] | | | | | | [place] | | | | | | [address] | | | | | | | | +--------+---------+ + + + + +--------+ + + | Name | Priori | Associated Diagnoses | Order Schedule | | | ty | | | + +--------+ + + | Ambulatory referral to Physical | Routin | Lumbar facet | Ordered: 12/20/2017 | | Therapy, Eval and Treat | e | arthropathy | | + +--------+ + + as of this encounter Visit Diagnoses + + | Diagnosis | + + | Spondylolisthesis of lumbar region | + + | Acquired spondylolisthesis | + + | Chronic low back pain without sciatica, unspecified back pain laterality | + + | DDD (degenerative disc disease), lumbar | + + | Degeneration of lumbar or lumbosacral intervertebral disc | + + | Lumbar facet arthropathy (HCC) | + + | Lumbosacral spondylosis without myelopathy | + + | Status post lumbar laminectomy | + +
--- OUTSIDE RECORDS SUMMARY | ~2018-03-11 | XMS | Encounter Summary ---
Demographics + + + | Address | [address] | | | [place] [address] | + + + | Home Phone [...] + + + | Author | [employer] | + + + | Organization | [employer] | + + + | Address [...] Team Providers + +------+ + | Care Shader And Toner Name | Role | Phone | + +------+ + | Priyanka Guerrero MD | PCP | | + +------+ + Reason for Visit +--------+ + | Reason | Comments | +--------+ + | Other | | +--------+ + Encounter Details +--------+ + + + + | Date | Type | Department | Care Team | Description | +--------+ + + + + | 01/22/ | Telephone | [facility] | Honey Shaffer, | Other | | 2018 | | [facility] | [facility] [address] | | | | | CARE [address] | [address] [place] | | | | | [place] | [address] | | | | | [phone] | | | +--------+ + + + [...] | | 2017 | Visit | | [facility] [address] | | | | | | [place] | | | | | | [address] | | | | | | | | +--------+---------+ + + + as of this encounter Visit Diagnoses Not on filein this encounter"
--- OUTSIDE RECORDS SUMMARY | ~2018-03-11 | XMS | Encounter Summary ---
Demographics + + + | Address | [address] | | | [place] [address] | + + + | Home Phone | | + + + | Preferred Language | Unknown | + + + | Marital Status | Single | + + + | Rastafari Affiliation | 1013 | + + + | Race | Unknown | + + + | Ethnic Group | Unknown | + + + Author + + + | Author | [employer] [employer] | + + + | Organization | [employer] | + + + | Address [...] Team Providers + +------+ + | Care Integration Software Engineer Name | Role | Phone [...] | Requisition | [address] | Aerobics Teacher | | | | | [place] [address] | | | | | | [phone] | | | +--------+ + + + [...] | | 2018 | Visit | | HOT DIE PRESS OPERATOR [address] | | | | | | [place] | | | | | | [address] | | | | | | | [...] + + | Blood | [facility] [address] [place] [address] | + + + FABIÁN (02/13/2018 11:17 AM) + + + + | Component | Value | Ref Range | + + + + | FABIÁN | NegativeComment: Reference range: Negative | | + + + + + + + | Specimen | Performing Laboratory | + + + | Blood - Vein | [facility] [address] | | | [place] [address] | + + + Sedimentation rate, automated (02/13/2018 11:17 AM) + +-------+ + | Component | Value | Ref Range | + +-------+ + | ESR | 10 | 0 - 20 mm/h | + +-------+ + + + + | Specimen | Performing Laboratory | + + + | Blood - Vein | [facility] [address] [place], | | | [place] [address] | + + + C-reactive protein (02/13/2018 11:17 AM) + +-------+ + | Component | Value | Ref Range | + +-------+ + | CRP | 0.4 | <0.5 mg/dL | + +-------+ + + + + | Specimen | Performing Laboratory | + + + | Blood - Vein | [facility] [address] [place] [address] [address]vd[address] [place], | | | [place] [address] | + + + Rheumatoid factor (02/13/2018 11:17 AM) + +-------+ + | Component | Value | Ref Range | + +-------+ + | RA TITER | <10 | <14 [iU]/mL | + +-------+ + + + + | Specimen | Performing Laboratory | + + + | Blood - Vein | [facility] [address] [place] [address] [address] [place], | | | [place] [address] | + + + in this encounter Visit Diagnoses + + | Diagnosis | + + | Multiple joint pain | + + | Pain in joint, multiple sites | + +"
--- OUTSIDE RECORDS SUMMARY | ~2018-03-11 | XMS | Encounter Summary ---
Demographics + + + | Address | [address] | | | [place] [address] | + + + | Home Phone [...] + + + | Author | [employer] | + + + | Organization | [employer] | + + + | Address [...] Team Providers + +------+ + | Care Wall Washer Name | Role | Phone | + [...] Required | | intervertebr | [address] | [place] | | | | | al disc | [address] | Physical | | | | | degeneration | Drive | [address] | | | | | , lumbar | [place], [place] | [place] [address] | | | | | region | [address] | [place], | | | | | | Phone: | [place] [address] | | | | | | [phone] | Phone: | | | | | | Fax: | [phone] | | | | | | [phone] | Fax: | | | | | | | [phone] | +--------+ + + + + + [...] | | [address] | Drive [place], [place] | Chronic low back | | | | [place] | [address] | pain without | | | | [address] | | sciatica, | | | | [phone] | | unspecified back | | | [...] right now and has been working w [facility] vocational rehab on finding a less strenuous profession. She was working in [email or web address]. Objective: Looks well. Walks independently. Motor: 03/30 [...] her to PT for core strengthening at [facility]. I also refilled her hydrocodone and Flexe ril. CC: SAKSHI SHAFFER Note: We spent approximately 25 minutes in mioh-mj-gnkv time of which greater than 50% was involved in counseling/coordination of care. in this encounter Plan of Treatment +--------+---------+ + + + | Date | Type | Specialty | Care Team | Description | +--------+---------+ + + + | 03/20/ | Office | Family Medicine | Sakshi Shaffer, | | | 2017 | Visit | | [facility] [address] | | | | | | [place] | | | | | | [address] | | | | | | | [...]
--- OUTSIDE RECORDS SUMMARY | ~2018-03-11 | XMS | Encounter Summary ---
Demographics + + + | Address | [address] | | | [place] [address] | + + + | Home Phone | | + + + | Preferred Language | Unknown | + + + | Marital Status | Single | + + + | Sabianist Affiliation | 1013 | + + + | Race | Unknown | + + + | Ethnic Group | Unknown | + + + Author + + + | Author | [employer] [employer] | + + + | Organization | [employer] [employer] | + + + | Address [...] Team Providers + +------+ + | Care Slasher Machine Operator Name | Role | Phone [...] + + | 12/14/ | Ancillary | [facility] | See, Medical | Pain | | 2018 | [facility] MRI | Record | | | | | [address] | | | | | | [place] [address] | | | | | | [phone] | | | +--------+ + + + [...] [place] | | | | | | [address] | | | | | | | | +--------+---------+ + + + as of this encounter Results MRI lumbar spine without contrast (12/07/2017 1:34 AM) + + + | Specimen | Performing Laboratory | + + + | | [facility] [address] [place] [address] | + + + + + | Narrative | + + | This is a non-reportable procedure without a radiologist report and is used for | | image storage only | + + in this encounter Visit Diagnoses + + | Diagnosis | + + | Pain | + + | Generalized pain | + +"
--- OUTSIDE RECORDS SUMMARY | ~2018-03-11 | XMS | Encounter Summary ---
Demographics + + + | Address | [address] | | | [place] [address] | + + + | Home Phone | | + + + | Preferred Language | Unknown | + + + | Marital Status | Single | + + + | Tenriism Affiliation | 1013 | + + + | Race | Unknown | + + + | Ethnic Group | Unknown | + + + Author + + + | Author | [employer] | + + + | Organization | [employer] | + + + | Address [...] Team Providers + +------+ + | Care Monotypist Name | Role | Phone | + +------+ + | Honey Shaffer | PCP | | + +------+ + Encounter Details +--------+ + + + + | Date | Type | Department | Care Team | Description | +--------+ + + + + | 12/14/ | Ancillary | [facility] | See, Medical | Pain | | 2018 | Orders | [facility] Xray | Record | | | | | [address] | | | | | | [place] [address] | | | | | | [phone] | | | +--------+ + + + [...] [place] | | | | | | [address] | | | | | | | | +--------+---------+ + + + as of this encounter Results X-ray lumbar spine limited 2-3 views (12/07/2017 1:34 AM) + + + | Specimen | Performing Laboratory | + + + | | [facility] [address] [place] [address] | + + + + + | Narrative | + + | This is a non-reportable procedure without a radiologist report and is used for | | image storage only | + + in this encounter Visit Diagnoses + + | Diagnosis | + + | Pain | + + | Generalized pain | + +"
--- OUTSIDE RECORDS SUMMARY | ~2018-03-11 | XMS | Encounter Summary ---
Demographics + + + | Address | [address] | | | [place] [address] | + + + | Home Phone [...] + + + | Author | [employer] | + + + | Organization | [employer] | + + + | Address [...] Team Providers + +------+ + | Care Senior Quality Control Technician Name | Role | Phone | + [...] + + | 12/14/ | Hospital | [facility] | See, Medical | Pain | | 2018 | Encounter | [facility] | Record | | | | | RADIOLOGY [address] | | | | [address] | | | | | | [place] [address] | | | | | | [phone] | | | +--------+ + + + [...] [place] | | | | | | [address] | | | | | | | | +--------+---------+ + + + as of this encounter Results MRI lumbar spine without contrast (12/07/2017 1:34 AM) + + + | Specimen | Performing Laboratory | + + + | | [facility] [address] [place] [address] | + + + + + | Narrative | + + | This is a non-reportable procedure without a radiologist report and is used for | | image storage only | + + in this encounter Visit Diagnoses + + | Diagnosis | + + | Pain | + + | Generalized pain | + +"
--- OUTSIDE RECORDS SUMMARY | ~2018-03-11 | XMS | Encounter Summary ---
Demographics + + + | Address | [address] | | | [place] [address] | + + + | Home Phone | | + + + | Preferred Language | Unknown | + + + | Marital Status | Single | + + + | Caodaism Affiliation | 1013 | + + + | Race | Unknown | + + + | Ethnic Group | Unknown | + + + Author + + + | Author | [employer] | + + + | Organization | [employer] | + + + | Address [...] Team Providers + +------+ + | Care Process Plant Operator Name | Role | Phone | [...] | | | | al disc | [place] [id number] | [address] Phone: | | | | | | Phone: | [phone] | | | | | | [phone] | Fax: | | | | | | Fax: | [phone] | | | | | | [phone] | | +--------+ + + + + + Encounter Details +--------+ + + + + | Date | Type | Department | Care Team | Description | +--------+ + + + + | 12/19/ | Telephone | [facility] | Marii Pickens, | | | 2017 | | [facility] | [facility] | | | | | CARE [address] | | | | | | [place] | | | | | | [phone] | | | +--------+ + + + [...] [place] | | | | | | [id number] | | | | | | | [...]
--- OUTSIDE RECORDS SUMMARY | ~2018-03-11 | XMS | Encounter Summary ---
Demographics + + + | Address | [address] | | | [place] [address] | + + + | Home Phone | | + + + | Preferred Language | Unknown | + + + | Marital Status | Single | + + + | Gnosticist Affiliation | 1013 | + + + | Race | Unknown | + + + | Ethnic Group | Unknown | + + + Author + + + | Author | [employer] | + + + | Organization | [employer] | + + + | Address [...] Team Providers + +------+ + | Care Merchandising Stock Associate Name | Role | Phone | + +------+ + | Honey Shaffer | PCP | | + +------+ + Encounter Details +--------+ + + + + | Date | Type | Department | Care Team | Description | +--------+ + + + + | 12/14/ | Hospital | [facility]YS[facility] | See, Medical | Pain | | 2017 | Encounter | [facility] | Record | | | | | RADIOLOGY [address] | | | | | | [address] | | | | | | [place] [address] | | | | | | [phone] | | | +--------+ + + + [...] | | 2017 | Visit | | [facility] [address] | | | | | | [place] [facility] | | | | | | [address] | | | | | | | | +--------+---------+ + + + as of this encounter Results X-ray lumbar spine limited 2-3 views (12/07/2017 1:34 AM) + + + | Specimen | Performing Laboratory | + + + | | [facility] [address] [place] [address] | + + + + + | Narrative | + + | This is a non-reportable procedure without a radiologist report and is used for | | image storage only | + + in this encounter Visit Diagnoses + + | Diagnosis | + + | Pain | + + | Generalized pain | + +"
--- OUTSIDE RECORDS SUMMARY | ~2018-03-11 | XMS | Encounter Summary ---
Demographics + + + | Address | [address] | | | [place] [address] | + + + | Home Phone | | + + + | Preferred Language | Unknown | + + + | Marital Status | Single | + + + | Druze Affiliation | 1013 | + + + | Race | Unknown | + + + | Ethnic Group | Unknown | + + + Author + + + | Author | [employer] | + + + | Organization | [employer] | + + + | Address [...] Team Providers + +------+ + | Care Sales Representative Supervisor Name | Role | Phone | + +------+ + | Honey Shaffer | PCP | | + +------+ + Encounter Details +--------+ + + + + | Date | Type | Department | Care Team | Description | +--------+ + + + + | 01/29/ | Documentati | [facility] | Honey Shaffer, | | | 2018 | on Only | [facility] | TRAVEL TRAILER COMPONENTS ASSEMBLER [address] | | | | | CARE [address] | [place] | | | | | [place] [...] [place] | | | | | | [address] | | | | | | | [...]
--- OUTSIDE RECORDS SUMMARY | ~2018-03-11 | XMS | Encounter Summary ---
Demographics + + + | Address | [address] | | | [place] [address] | + + + | Home Phone | | + + + | Preferred Language | Unknown | + + + | Marital Status | Single | + + + | Pentecostalism Affiliation | 1013 | + + + | Race | Unknown | + + + | Ethnic Group | Unknown | + + + Author + + + | Author | [employer] | + + + | Organization | [employer] | + + + | Address [...] Providers + +------+ + | Care Commercial Account Officer Name | Role | Phone | + +------+ + | Edmund Honey TOOL AND DIE REPAIRER | PCP | | + +------+ + Reason for Visit +--------+ + | Reason | Comments | +--------+ + | Other | Labs from [facility] | +--------+ + Encounter Details +--------+ + + + + | Date | Type | Department | Care Team | Description | +--------+ + + + + | 12/13/ | Documentati | [facility] | Marii Pickens, | Other (Labs from | | 2018 | on Only | [facility] | ENDOCRINOLOGIST | Tami [facility]) | | | | CARE [address] | | | | | | Way [place], [place] | | | | | | [address] | | | +--------+ + + + [...] | | 2017 | Visit | | TOOL AND DIE REPAIRER [address] | | | | | | [place] | | | | | | [address] | | | | | | | | +--------+---------+ + + + as of this encounter Results CBC w/manual diff (12/13/2017) + +-------+ + [...] | Blood | | + + + in this encounter Visit Diagnoses Not on filein this encounter"
--- OUTSIDE RECORDS SUMMARY | ~2018-03-11 | XMS | Encounter Summary ---
Demographics + + + | Address | [address] | | | [place] [address] | + + + | Home Phone [...] + + + | Author | [employer] [employer] | + + + | Organization | [employer] | + + + | Address [...] Team Providers + +------+ + | Care Supply Chain Associate Name | Role | Phone | [...] + + | 01/22/ | Telephone | [facility] | Honey Shaffer, | Other | | 2018 | | [facility] | PULMONARY PHYSICAL THERAPIST [address] | | | | | CARE [address] | [address] [place] | | | | | [place] | [address] | | | | | [phone] | | | +--------+ + + + [...] | | 2017 | Visit | | PULMONARY PHYSICAL THERAPIST [address] | | | | | | [place] | | | | | | [address] | | | | | | | | +--------+---------+ + + + as of this encounter Visit Diagnoses Not on filein this encounter"
--- OUTSIDE RECORDS SUMMARY | ~2018-03-11 | XMS | Encounter Summary ---
Demographics + + + | Address | [address] | | | [place] [address] | + + + | Home Phone | | + + + | Preferred Language | Unknown | + + + | Marital Status | Single | + + + | Advent Affiliation | 1013 | + + + | Race | Unknown | + + + | Ethnic Group | Unknown | + + + Author + + + | Author | [employer] | + + + | Organization | [employer] | + + + | Address [...] Team Providers + +------+ + | Care Director Of Integrated Marketing Name | Role | Phone | + +------+ + | Honey Shaffer | PCP | | + +------+ + Reason for Visit +--------+ + | Reason | Comments | +--------+ + | Other | [facility] - ER Visit | +--------+ + Encounter Details +--------+ + + + + | Date | Type | Department | Care Team | Description | +--------+ + + + + | 01/22/ | Documentati | [facility] | Marii Pickens [place], | Other ([place] | | 2018 | on Only | [facility] | [facility] | Hospital - ER | | | | [facility] | | Visit) | | | | Way [place] | | | | | | [address] | | | +--------+ + + + [...] [place] | | | | | | [address] | | | | | | | | +--------+---------+ + + + as of this encounter Visit Diagnoses Not on filein this encounter"
--- OUTSIDE RECORDS SUMMARY | ~2018-03-11 | XMS | Encounter Summary ---
Demographics + + + | Address | [address] | | | [place] [address] | + + + | Home Phone [...] + + + | Author | [employer] | + + + | Organization | [employer] | + + + | Address [...] Team Providers + +------+ + | Care Buck Presser Name | Role | Phone | + +------+ + | Edmund Honey TUB CHUCKER | PCP | | + +------+ + Reason for Visit +--------+ + | Reason | Comments | +--------+ + | Other | Labs from [facility] | +--------+ + Encounter Details +--------+ + + + + | Date | Type | Department | Care Team | Description | +--------+ + + + + | 12/13/ | Documentati | [facility] | Marii Pickens, | Other (Labs from | | 2018 | on Only | [facility] | WORKERS COMPENSATION ANALYST | Tami Chowdary) | | | | CARE [address] | | | | | | Way [place], [place] | | | | | | [address] | | | +--------+ + + + [...] | | 2017 | Visit | | TUB CHUCKER [address] | | | | | | [place] | | | | | | [address] | | | | | | | [...]
--- OUTSIDE RECORDS SUMMARY | ~2018-03-11 | XMS | Encounter Summary ---
Demographics + + + | Address | [address] | | | [place] [address] | + + + | Home Phone [...] + + + | Author | [employer] | + + + | Organization | [employer] | + + + | Address [...] Team Providers + +------+ + | Care Silk Finisher Name | Role | Phone | + +------+ + | Honey Shaffer | PCP | | + +------+ + Encounter Details +--------+ + + + + | Date | Type | Department | Care Team | Description | +--------+ + + + + | 03/01/ | Telephone | Romaine | Halley Ibarra, | | | 2018 | | [facility] | PRODUCT DEVELOPMENT COORDINATOR | | | | | [address] | | | | | | [place] | | | | | | [address] | | | | | | [phone] | | | +--------+ + + + [...] [place] | | | | | | [address] | | | | | | | | +--------+---------+ + + + as of this encounter Visit Diagnoses Not on filein this encounter"
--- OUTSIDE RECORDS SUMMARY | ~2018-03-11 | XMS | Encounter Summary ---
Demographics + + + | Address | [address] | | | [place] [address] | + + + | Home Phone | | + + + | Preferred Language | Unknown | + + + | Marital Status | Single | + + + | Sabianism Affiliation | [id number] | + + + | Race | Unknown | + + + | Ethnic Group | Unknown | + + + Author + + + | Author | [employer] | + + + | Organization | [employer] | + + + | Address [...] Team Providers + +------+ + | Care Community Organization Aide Name | Role | Phone | + +------+ + | Honey Shaffer | PCP | | + +------+ + Encounter Details +--------+ + + + + | Date | Type | Department | Care Team | Description | +--------+ + + + + | 12/12/ | Telephone | [facility] | Marcus, | | | 2017 | | LAURA INMAN | MONA Mcmillan | | | | | SARIKA García[address]elyn Lopez | | | | | | [place] | | | | | | [address] | | | +--------+ + + + [...] [place] | | | | | | [id number] | | | | | | | | +--------+---------+ + + + as of this encounter Visit Diagnoses Not on filein this encounter"
[~2018-03-11 10:55] MED LIST changes: +BACLOFEN10 MG PO; +CYCLOBENZAPRINE5 MG PO; +METHYLPREDNISOLO4 M1 PO; +PERCOCET 5-3251 EACH PO; +PERCOCET 7.5-31 EACH PO
--- OUTSIDE RECORDS SUMMARY | 2018-03-11 11:18 | XMS | Clinical Summary ---
Demographics + + + | Address | [address] | | | [place] [address] | + + + | Home Phone | | + + + | Preferred Language | Unknown | + + + | Marital Status | Single | + + + | Amish Affiliation | 1013 | + + + | Race | Unknown | + + + | Ethnic Group | Unknown | + + + Author + + + | Author | [facility] | + + + | Organization | [facility] | + + + | Address | Unknown | + + + | Phone | Unavailable | + + + Support + + +---------+ + | Name | Relationship | Address | Phone | + + +---------+ + | Rolanda Pimentel | ECON | Unknown | | + + +---------+ + | Ernesto Rose | ECON | Unknown | | + + +---------+ + Care Team Providers + +------+ + | Care Caul Fat Puller Name | Role | Phone | + +------+ + | Honey Shaffer | PP | | + +------+ + Allergies + + + + + + | Active Allergy | Reactions | Severity | Noted | Comments | | | | | Date | | + + + + + + | Erythromycin | Rash | Medium | 08/16/20 | | | | | | 16 | | + + + + + + Current Medications + + +-------+---------+------+------+-------+ | Prescription | Sig. | Disp. | Refills | Star | End | Statu | | | | | | t | Date | s | | | | | | Date | | | + + +-------+---------+------+------+-------+ | Multiple Vitamin | Take 1 tablet by | | | | | Activ | | (MULTI VITAMIN DAILY | mouth. | | | | | e | | PO) | | | | | | | + + +-------+---------+------+------+-------+ | B Complex Vitamins | Take by mouth. | | | | | Activ | | (VITAMIN-B COMPLEX | | | | | | e | | PO) | | | | | | | + + +-------+---------+------+------+-------+ | | Take 1 tablet by | | | | | Activ | | oxyCODONE-acetaminop | mouth every 4 (four) | | | | | e | | hen (PERCOCET) 5-325 | hours as needed for | | | | | | | MG per tablet | Pain. | | | | | | + + +-------+---------+------+------+-------+ | ibuprofen (MOTRIN) | Take 800 mg by mouth | | 0 | 11/26 | | Activ | | 800 MG tablet | 3 (three) times | | | / | | e | | | daily. for 10 days. | | | 18 | | | + + +-------+---------+------+------+-------+ | Probiotic Product | Take by mouth. | | | | | Activ | | (PROBIOTIC DAILY PO) | | | | | | e | + + +-------+---------+------+------+-------+ Active Problems + + + | Problem | Noted Date | + + + | Bilateral primary osteoarthritis of hip | 01/29/2018 | + + + + + | Overview: Seen on xray at [facility] 01/22/18 | + + + + + | Hypercholesteremia | 01/23/2018 | + + + | Multiple joint pain | 01/23/2018 | + + + | Lumbar discogenic pain syndrome | 01/23/2018 | + + + | Post-traumatic osteoarthritis of first carpometacarpal joint of | 03/22/2017 | | left hand | | + + + | Pain of left thumb | 03/22/2017 | + + + | Spondylolisthesis of lumbar region | 01/05/2017 | + + + | Lumbar radicular syndrome | 11/07/2016 | + + + + + | Last Assessment & Plan: In summary this is a 41-year-old | | woman who has low back pain radiating down her left posterior | | lateral thigh and calf and her left heel. She reports that she | | has had a work related injury were a heavy machinery fell on her. | | Afterwards she had back pain with sciatica symptoms. In June | | 2015 she fell and slipped on a floor. This aggravated her | | symptoms. She does report weakness with her left foot and often | | times drags it. She also reports tingling. She denies any bowel | | or bladder dysfunction. She has tried oxycodone but has recently | | stopped due to side effects. She did receive a prescription for | | gabapentin but has not taken it due to the fear of the side | | effects. She has tried heat and ibuprofen and bedrest. She had a | | lumbar MRI that showed synovial cyst anterior to the left L4-L5 | | facet narrowing the left lateral recess contacting and possibly | | compressing the traversing left L5 nerve root. Minimal anterior | | spondylolisthesis of L4 on L5 from severe bilateral degenerative | | facet disease. Mild central canal stenosis at L4-L5.Mild to | | moderate bilateral neural foraminal narrowing at L4-L5. She was | | referred to [facility] for neurosurgical | | consult.Today reviewed her MRI and discuss treatment options. Her | | symptoms are most likely due to the facet cyst and lateral | | recess narrowing at L4-5. Due to her insurance she has not | | candidate for interventional pain management. I did encourage her | | to try gabapentin in physical therapy. We will also get lumbar | | flexion extension x-rays. If she fails to get relief and has | | continued weakness and will ask Dr. Delacruz acute like to see the | | patient for follow-up. We will also give her an AFO brace.. | + + + + + | Synovial cyst of lumbar facet joint | 11/07/2016 | + + + + + | Last Assessment & Plan: See discussion under lumbar radicular | | pain | + + + + + | DDD (degenerative disc disease), lumbar | 11/07/2016 | + + + + + | Last Assessment & Plan: See discussion under lumbar radicular | | pain | + + + + + | Lumbar facet arthropathy | 11/07/2016 | + + + + + | Last Assessment & Plan: See discussion under lumbar radicular | | pain | + + + + + | Chronic low back pain | 08/25/2016 | + + + Encounters +--------+ + + + + | Date | Type | Specialty | Care Team | Description | +--------+ + + + + | 03/01/ | Telephone | | Halley Ibarra, | | | 2017 | | | REVENUE CYCLE MANAGER | | +--------+ + + + + | 03/01/ | Documentati | | Beronica Crespo MA | Other (OUTSIDE | 2017 | on Only | | | MEDICAL RECORDS) | +--------+ + + + + | 02/28/ | Telephone | | Marcus | Tarik | | 2017 | | | MONA Mcmillan | | +--------+ + + + + | 02/18/ | Telephone | | Marii Pickens, | | | 2017 | | | REVENUE CYCLE MANAGER | | +--------+ + + + + | 02/13/ | Lab | | Sallie Pantoja, | Multiple joint pain | 2017 | Requisition | | Broach Setter | | +--------+ + + + + | 01/29/ | Documentati | | Honey Shaffer, | | | 2018 | on Only | | MILL CONTROLLER | | +--------+ + + + + | 01/23/ | Office | | Honey Shaffer, | Staph aureus | | 2017 | Visit | | MILL CONTROLLER | infection (Primary | | | | | | Dx); Lumbar | | | | | | discogenic pain | | | | | | syndrome; Multiple | | | | | | joint pain; | | | | | | Hypercholesteremia | +--------+ + + + + | 01/22/ | Documentati | | Marii Pickens, | Other ([facility] | | 2018 | on Only | | REVENUE CYCLE MANAGER | Hospital - Xray | | | | | | Hip) | +--------+ + + + + | 01/22/ | Documentati | | Marii Pickens, | Other ([facility] | | 2018 | on Only | | REVENUE CYCLE MANAGER | Hospital - ER | | | | | | Visit) | +--------+ + + + + | 01/22/ | Documentati | | Marii Pickens, | [place] [facility] | | 2017 | on Only | | REVENUE CYCLE MANAGER | Hospital - ER Visit) | +--------+ + + + + | 01/22/ | Documentati | | Marii Pickens, | [place] [facility] | | 2017 | on Only | | REVENUE CYCLE MANAGER | Labs - UA) | +--------+ + + + + | 01/22/ | Telephone | | Honey Shaffer, | Other | | 2018 | | | MILL CONTROLLER | | +--------+ + + + + | 01/10/ | Documentati | | Beronica Crespo MA | Other (DIAGNOSTICS) | | 2018 | on Only | | | | +--------+ + + + + | 01/02/ | Telephone | | Honey Shaffer, | | | 2017 | | | MILL CONTROLLER | | +--------+ + + + + | 12/20/ | Office | | Haseeb Delacruz MD | Spondylolisthesis of | | 2017 | Visit | | | lumbar region; | | | | | | Chronic low back | | | | | | pain without | | | | | | sciatica, | | | | | | unspecified back | | | | | | pain laterality; DDD | | | | | | (degenerative disc | | | | | | disease), lumbar; | | | | | | Lumbar facet | | | | | | arthropathy; Status | | | | | | post lumbar | | | | | | laminectomy | +--------+ + + + + | 12/19/ | Telephone | | Marii Pickens, | | | 2017 | | | REVENUE CYCLE MANAGER | | +--------+ + + + + | 12/14/ | Emergency | | Ej Amanda, | Abscess (Primary | | 2017 | | | Sandeep Petit | Dx); Elevated blood | | | | | MD Lenny | pressure reading; | | | | | | Chronic pain | | | | | | syndrome | +--------+ + + + + | 12/14/ | Hospital | | See, Medical | Pain | | 2017 | Encounter | | Record | | +--------+ + + + + | 12/14/ | Hospital | | See, Medical | Pain | | 2017 | Encounter | | Record | | +--------+ + + + + | 12/14/ | Telephone | | Honey Shaffer, | Follow-up | | 2017 | | | MILL CONTROLLER | | +--------+ + + + + | 12/14/ | Procedure | | | | | 2018 | Pass | | | | +--------+ + + + + | 12/14/ | Ancillary | | See, Medical | Pain | | 2017 | Orders | | Record | | +--------+ + + + + | 12/14/ | Ancillary | | See, Medical | Pain | | 2017 | Orders | | Record | | +--------+ + + + + | 12/13/ | Documentati | | Marii Pickens, | Other (Labs from | 2017 | on Only | | [facility] | Tami Chowdary) | +--------+ + + + + | 12/12/ | Telephone Edilberto Velazquez, | | | 2017 | | | MONA Mcmillan | | +--------+ + + + + from Last 3 Months Family History + + +------+ + | Medical History | Relation | Name | Comments | + + +------+ + | Skin cancer | Cousin | | | + + +------+ + | Diabetes type I | Cousin | | | + + +------+ + + +------+--------+ + | Relation | Name | Status | Comments | + +------+--------+ + | Cousin | | | | + +------+--------+ + | Cousin | | | | + +------+--------+ + Social History + +-------+ +--------+ + | Tobacco Use | Types | Packs/Day | Years | Date | | | | | Used | | + +-------+ +--------+ + | Former Smoker | | 2 | 14 | Quit: 11/26/2015 | + +-------+ +--------+ + + +---+---+---+ | Smokeless Tobacco: | | | | | Never Used | | | | + +---+---+---+ + + +---------+ + | Alcohol Use | Drinks/We | oz/Week | Comments | | | ek | | | + + +---------+ + | Yes | | | occ | + + +---------+ + + + + | Sex Assigned at | Date Recorded | | | | + + + | Not on file | | + + + Last Filed Vital Signs + + + + | Vital Sign | Reading | Time Taken | + + + + | Blood Pressure | 132/90 | 01/23/2018 11:40 AM PST | + + + + | Pulse | 71 | 01/23/2018 11:40 AM PST | + + + + | Temperature | 36.7 C (98.1 F) | 01/23/2018 11:40 AM PST | + + + + | Respiratory Rate | 16 | 01/23/2018 11:40 AM PST | + + + + | Oxygen Saturation | 97% | 01/23/2018 11:40 AM PST | + + + + | Inhaled Oxygen | - | - | | Concentration | | | + + + + | Weight | 90.3 kg (199 lb) | 01/23/2018 11:40 AM PST | + + + + | Height | 170.2 cm (5' 7") | 01/23/2018 11:40 AM PST | + + + + | Body Mass Index | 31.17 | 01/23/2018 11:40 AM PST | + + + + Plan of Treatment +--------+---------+ + + + | Date | Type | Specialty | Care Team | Description | +--------+---------+ + + + | 03/20/ | Office | | Honey Shaffer, | | | 2017 | Visit | | [facility] [address] | | | | | | [address] [place] | | | | | | [address] | | | | | | | | +--------+---------+ + + + + + + + + | Health Maintenance | Due Date | Last Done | Comments | + + + + + | Vaccine: | | | | | Dtap/Tdap/Td (1 - | 3 | | | | Tdap) | | | | + + + + + | Cervical Cancer | | 07/03/2016 | | | Screening (Pap) | 9 | | | + + + + + | Vaccine: Influenza | | | Postponed from | | (Season Ended) | 5 | | 07/27/2018 (Patient | | | | | Declined) | + + + + + Results Cyclic Peptide IGG (02/13/2018 11:17 AM) + + + + | Component | Value | Ref Range | + + + + | CCP ANTIBODIES IGG | 4Comment: Reference range: 0 to | | | IGA | 19 | | | | | | | | Negative | | | | <20 | | | | Weak positive 20 - | | | | 39 | | | | Moderate positive 40 - | | | | 59 | | | | Strong positive >59 | | + + + + + + + | Specimen | Performing Laboratory | + + + | Blood | [facility] [address] [place] [address] | + + + Sedimentation rate, automated (02/13/2018 11:17 AM) + +-------+ + | Component | Value | Ref Range | + +-------+ + | ESR | 10 | 0 - 20 mm/h | + +-------+ + + + + | Specimen | Performing Laboratory | + + + | Blood - Vein | [facility] [address] [place], | | | [place] [address] | + + + Rheumatoid factor (02/13/2018 11:17 AM) + +-------+ + | Component | Value | Ref Range | + +-------+ + | RA TITER | <10 | <14 [iU]/mL | + +-------+ + + + + | Specimen | Performing Laboratory | + + + | Blood - Vein | [facility] [address] [place], | | | [place] [address] | + + + C-reactive protein (02/13/2018 11:17 AM) + +-------+ + | Component | Value | Ref Range | + +-------+ + | CRP | 0.4 | <0.5 mg/dL | + +-------+ + + + + | Specimen | Performing Laboratory | + + + | Blood - Vein | [facility] [address] [place], [place] [address], | | | [place] [address] | + + + FABIÁN (02/13/2018 11:17 AM) + + + + | Component | Value | Ref Range | + + + + | FABIÁN | NegativeComment: Reference range: Negative | | + + + + + + + | Specimen | Performing Laboratory | + + + | Blood - Vein | [facility] [address] | | | [place] [address] | + + + Urinalysis w/microscopic (reflex to culture) (01/22/2018) + + + + | Component | Value | Ref Range | + + + + | COLOR UA | | | + + + + | CLARITY | | | + + + + | SPECIFIC | | | | GRAVITY,URINE | | | + + + + | LEUKOCYTE ESTERASE | | | + + + + | NITRITE | | | + + + + | UROBILINOGEN | | | + + + + | PROTEIN | | | + + + + | PH,URINE | | | + + + + | BLOOD | | | + + + + | KETONES | | | + + + + | BILIRUBIN | | | + + + + | GLUCOSE | | | + + + + | WBC | 0 | | + + + + | RBC | 0 | | + + + + | EPITHELIAL | squamous 1+ | | + + + + | BACTERIA | 1-5 | | + + + + | Hyaline Cast | None Seen | | + + + + Urinalysis (reflex to micro) (01/22/2018) + + + + | Component | Value | Ref Range | + + + + | COLOR UA | Yellow | | + + + + | CLARITY | Clear | | + + + + | SPECIFIC | 1.021 | | | GRAVITY,URINE | | | + + + + | LEUKOCYTE ESTERASE | Negative | | + + + + | NITRITE | Negative | | + + + + | UROBILINOGEN | Normal | | + + + + | PROTEIN | neg | | + + + + | PH,URINE | 6 | | + + + + | BLOOD | Negative | | + + + + | KETONES | neg | | + + + + | BILIRUBIN | Negative | | + + + + | GLUCOSE | Negative | | + + + + + + + | Specimen | Performing Laboratory | + + + | Urine | | + + + Wound culture (12/14/2017 11:45 AM) + + + + | Component | Value | Ref Range | + + + + | Specimen Description | OTHER | | + + + + | CULTURE | 3+ | | + + + + | CULTURE | STAPHYLOCOCCUS AUREUS (A) | | + + + + + + + | Specimen | Performing Laboratory | + + + | Wound - OTHR-w | [facility] [address] [place], | | source desc (F6) | [place] [address] | + + + + + +--------+ + | Organism | Antibiotic | Method | Susceptibility | + + +--------+ + | Staphylococcus | Penicillin G | YANELI | RESISTANT: | | aureus | | | Resistant | + + +--------+ + | Staphylococcus | Clindamycin | YANELI | SUSCEPTIBLE: | | aureus | | | Sensitive | + + +--------+ + | Staphylococcus | Erythromycin | YANELI | SUSCEPTIBLE: | | aureus | | | Sensitive | + + +--------+ + | Staphylococcus | Gentamicin | YANELI | SUSCEPTIBLE: | | aureus | | | Sensitive | + + +--------+ + | Staphylococcus | Levofloxacin | YANELI | RESISTANT: | | aureus | | | Resistant | + + +--------+ + | Staphylococcus | Moxifloxacin | YANELI | INTERMEDIATE: | | aureus | | | Intermediate | + + +--------+ + | Staphylococcus | Oxacillin | YANELI | SUSCEPTIBLE: | | aureus | | | Sensitive | + + +--------+ + | Staphylococcus | Tetracycline | YANELI | SUSCEPTIBLE: | | aureus | | | Sensitive | + + +--------+ + | Staphylococcus | Trimethoprim + | YANELI | SUSCEPTIBLE: | | aureus | Sulfamethoxazole | | Sensitive | + + +--------+ + | Staphylococcus | Vancomycin | YANELI | SUSCEPTIBLE: | | aureus | | | Sensitive | + + +--------+ + CBC w/manual diff (12/13/2017) + +-------+ + | Component | Value | Ref Range | + +-------+ + | WBC | 5.8 | 10^3/mL | + +-------+ + | RBC | 4.5 | 10^6/ L | + +-------+ + | HGB | 13.7 | g/dL | + +-------+ + | HCT | 41.5 | % | + +-------+ + | MCV | 91.5 | fL | + +-------+ + | MCH | 30.2 | pg | + +-------+ + | MCHC | 33.0 | g/dL | + +-------+ + | RDW SD | 14.0 | % | + +-------+ + | PLT | 161 | K/ L | + +-------+ + | MPV | | fL | + +-------+ + | NEUTROPHILS | 57.0 | % | + +-------+ + | LYMPHOCYTES | 33.3 | % | + +-------+ + | MONOCYTES | 7.2 | % | + +-------+ + | EOSINOPHILS | 2.0 | % | + +-------+ + | BASOPHILS | 0.5 | % | + +-------+ + | Neutrophils Absolute | 3.3 | / L | + +-------+ + | Lymphocytes Absolute | 1.9 | / L | + +-------+ + | Monocytes Absolute | 0.4 | / L | + +-------+ + | Eosinophils Absolute | 0.1 | / L | + +-------+ + | Basophils Absolute | 0.0 | / L | + +-------+ + + + + | Specimen | Performing Laboratory | + + + | Blood | | + + + TSH (12/13/2017) + +-------+ + | Component | Value | Ref Range | + +-------+ + | TSH | 2.06 | uIU/mL | + +-------+ + + + + | Specimen | Performing Laboratory | + + + | Blood | | + + + Lipid panel (12/13/2017) + +-------+ + | Component | Value | Ref Range | + +-------+ + | CHOLESTEROL | 208 | mg/dL | + +-------+ + | TRIGLYCERIDES | 81 | mg/dL | + +-------+ + | HDL CHOL | 61 | mg/dl | + +-------+ + | LDL CALC | 131 | mg/dL | + +-------+ + | LDl/HDL Ratio | | | + +-------+ + | CHOL/HDL | 3.4 | | + +-------+ + | VLDL CHOL | 16 | mg/dL | + +-------+ + | NON HDL CHOL | 147 | | + +-------+ + + + + | Specimen | Performing Laboratory | + + + | Blood | | + + + Comprehensive metabolic panel (12/13/2017) + +-------+ + | Component | Value | Ref Range | + +-------+ + | GLUCOSE | 98 | mg/dL | + +-------+ + | BUN | 15 | mg/dL | + +-------+ + | CREATININE | 0.78 | mg/dL | + +-------+ + | BUN/CREAT | | | + +-------+ + | CALCIUM | 9.3 | mg/dL | + +-------+ + | TOTAL PROTEIN | 6.9 | g/dL | + +-------+ + | Albumin | 4.1 | | + +-------+ + | GLOBULIN | 2.8 | | + +-------+ + | A/G | 1.5 | | + +-------+ + | TBIL | 0.4 | mg/dL | + +-------+ + | ALK PHOS | | | + +-------+ + | ALT | 19 | U/L | + +-------+ + | AST | 15 | U/L | + +-------+ + | SODIUM | 139 | mmol/L | + +-------+ + | POTASSIUM | 4.0 | mmol/L | + +-------+ + | CHLORIDE | 105 | mmol/L | + +-------+ + | CO2 | 25 | mmol/L | + +-------+ + | ANION GAP AGAP | 9.0 | mmol/L | + +-------+ + | EGFR | | mg/dL | + +-------+ + + + + | Specimen | Performing Laboratory | + + + | Blood | | + + + from Last 3 Months Insurance + +--------+ +------+-------+ + | Payer | Benefi | Subscriber | Type | Phone | Address | | | t Plan | ID | | | | | | / | | | | | | | Group | | | | | + +--------+ +------+-------+ + | MEDICAID | [place] | xxxxxxxx | | | [address] | | | N | | | | [place], [place] | | | [place] | | | | [address] | | | CUTTING TABLE OPERATOR FIRST | | | | | + +--------+ +------+-------+ + + +--------+ +--------+ + + | Guarantor Name | Accoun | Relation to | Date | Phone | Billing Address | | | t Type | Patient | of | | | | | | | | | | + +--------+ +--------+ + + | GRACE BENNETT | Person | Self [birth year] Home: | [address] | | | al/Fam | | 1975 | [phone] [address] [place], [place] | | | [place] | | | [phone] | + +--------+ +--------+ + +
[2018-03-11] MEDS ORDERED: PERCOCET 7.5-31 EACH PO (12:49)
== END 2018-03-11 13:05 | disposition home or self-care (01) ==
LOC: ED 10:55
DX: G89.29 Other chronic pain (principal); M54.5 Low back pain; R39.15 Urgency of urination; Z88.1 Allergy status to other antibiotic agents
CPT/HCPCS: 81001; 84703; 96372; 99283; J1885

== ENCOUNTER 2022-02-19 16:37 | Emergency (ER) | payer MEDICARE, OTHER ==
[~2022-02-19] VITALS: Ht 170.2 cm; Wt 88.5 kg
--- OUTSIDE RECORDS SUMMARY | 2022-02-19 16:40 | XMS ---
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 Louann VISIT COUNT (12 MO.) [address] [facility] TOTAL 2 NOTE: Visits indicate total known visits. ED/UCC VISIT TRACKING (12 MO.) 02/19/2022 16:38 [facility] [place] TYPE: Emergency COMPLAINT: - FALL,RIB PAIN 05/09/2021 07:39 [facility] [place] TYPE: Emergency DIAGNOSES: - Fall - "fall, back pain" - Unspecified injury of unspecified ankle, initial encounter - Pain in left hip - Other chronic pain - "fall" - Low back pain - Fall (on) (from) other stairs and steps, initial encounter INPATIENT VISIT TRACKING (12 MO.) No inpatient visits to display in this time frame [email or web address]
[2022-02-19] MEDS ORDERED: HYDROCODON-ACE1 EA11 PO (17:14)
[2022-02-19] MEDS ORDERED: METHOCARBAMOL500 MG PO (17:14)
[2022-02-19] MEDS ORDERED: PERCOCET 5-3251 EACH PO (18:15)
== END 2022-02-19 18:32 | disposition home or self-care (01) ==
LOC: ED 16:37
DX: S20.211A Contusion of right front wall of thorax, initial encounter (principal); M19.90 Unspecified osteoarthritis, unspecified site; Z88.5 Allergy status to narcotic agent; Z88.1 Allergy status to other antibiotic agents; Z79.899 Other long term (current) drug therapy; W01.0XXA Fall on same level from slipping, tripping and stumbling without subsequent striking against object, initial encounter
CPT/HCPCS: 71046; 99283-25

== ENCOUNTER 2022-04-15 19:28 | Emergency (ER) | payer MEDICARE, OTHER ==
[~2022-04-15] VITALS: Ht 167.6 cm; Wt 88.0 kg
[~2022-04-15 19:28] MED LIST changes: +HYDROCODON-ACE1 EA11 PO; +METHOCARBAMOL500 MG PO
--- OUTSIDE RECORDS SUMMARY | 2022-04-15 19:30 | XMS ---
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 Vinicius has no Care Guidelines for this patient. Louann VISIT COUNT (12 MO.) 1 [facility] 2 [facility] TOTAL 3 NOTE: Visits indicate total known visits. ED/C VISIT TRACKING (12 MO.) 04/15/2022 19:28 [facility] [place] TYPE: Emergency COMPLAINT: - WEAKNESS,VOMITING,DIARRHEA 02/19/2022 16:38 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
[2022-04-15] MEDS ORDERED: ONDANSETRON ODT8 MG PO (22:38)
== END 2022-04-15 22:51 | disposition home or self-care (01) ==
LOC: ED 19:28
DX: K52.9 Noninfective gastroenteritis and colitis, unspecified (principal); M19.90 Unspecified osteoarthritis, unspecified site; Z88.5 Allergy status to narcotic agent; Z88.8 Allergy status to other drugs, medicaments and biological substances; Z88.1 Allergy status to other antibiotic agents; Z79.899 Other long term (current) drug therapy
CPT/HCPCS: 36415; 80053; 81001; 83735; 84703; 85025; 96361; 96374; 99284-25; A9270; J2405; J7030

== ENCOUNTER 2022-07-31 05:29 | Emergency (ER) | payer MEDICARE, OTHER ==
[~2022-07-31] VITALS: Ht 167.6 cm; Wt 90.2 kg
[~2022-07-31 05:29] MED LIST changes: +ONDANSETRON ODT8 MG PO
--- OUTSIDE RECORDS SUMMARY | 2022-07-31 05:30 | XMS ---
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 Vinicius has no Care Guidelines for this patient. Louann VISIT COUNT (12 MO.) 3 [facility] TOTAL 3 NOTE: Visits indicate total known visits. 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 - Allergy status to other drugs, medicaments and biological substances 02/19/2022 16:38 [facility] [place] TYPE: Emergency COMPLAINT: - FALL,RIB PAIN DIAGNOSES: - Allergy status to narcotic agent - Fall on same level from slipping, tripping and stumbling without subsequent striking against object, initial encounter - Allergy status to other antibiotic agents - Unspecified osteoarthritis, unspecified site - Other chest pain - 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
[2022-07-31] MEDS ORDERED: ONDANSETRON ODT4 MG PO (07:08)
[2022-07-31] MEDS ORDERED: IMITREX25 MG PO (07:08)
== END 2022-07-31 07:18 | disposition home or self-care (01) ==
LOC: ED 05:29
DX: G43.909 Migraine, unspecified, not intractable, without status migrainosus (principal); Z88.1 Allergy status to other antibiotic agents; Z88.5 Allergy status to narcotic agent; Z88.8 Allergy status to other drugs, medicaments and biological substances; Z79.899 Other long term (current) drug therapy
CPT/HCPCS: 96374; 96375; 99283-25; J1200; J1885; J2550; J3030